=== PATIENT | female | born 1945 | race Caucasian/White ===

== ENCOUNTER 2018-04-15 08:19 | Day surgery (SDC) | payer MEDICARE ==
[~2018-04-15 08:19] MED LIST: ALBU8HFA2 INH; ALBU90OI61 INH; ASPI325 PO; BUTASPCAFT PO; CEPH500 PO; CYAN1000I IM; CYCL10 PO; ERGO50000 PO; FLUC100 PO; FLUSAL1005 INH; Flovent Diskus50 MCG IH; HYDACE5 PO; HYDR-86; HYDR1TAB94 PO; INDERAL XL120 MG PO; LAMO100 PO; LEVSOD100 PO; LEVSOD50 PO; LISI5; LISI5 PO; LORA1 PO; Lamictal200 MG PO; NAPR500 PO; Norco 5-325 Ta1 EACH PO; PROP10 PO; Percocet 5-3251 EACH PO; Prednisone20 MG PO; QUET100 PO; QUET200 PO; SOMA250 MG PO; TOPI25 PO; TOPI50 PO; VENL150ER PO; VENL75ER PO; Vitamin B Comple1 EA PO; ZIPR80 PO; Zofran Odt4 MG SL
== END 2018-04-15 23:09 | disposition home or self-care (01) ==
LOC: RAD 08:19
PROVIDERS: Radiology Diagnostic Radiology
PROC: BR20YZZ Computerized Tomography (CT Scan) of Cervical Spine using Other Contrast (ICD-10-PCS; principal; 2018-04-15 10:30)
DX: M50.11 Cervical disc disorder with radiculopathy, high cervical region (principal); Z87.828 Personal history of other (healed) physical injury and trauma
CPT/HCPCS: 62302; 72126; Q9966

== ENCOUNTER 2018-05-23 10:34 | Day surgery (SDC) | payer MEDICARE ==
[2018-05-23] MEDS ORDERED: CYAN1000I IM (14:32)
== END 2018-05-23 14:38 | disposition home or self-care (01) ==
LOC: ATC 10:34
DX: E53.8 Deficiency of other specified B group vitamins (principal); M50.11 Cervical disc disorder with radiculopathy, high cervical region; E03.9 Hypothyroidism, unspecified; I12.9 Hypertensive chronic kidney disease with stage 1 through stage 4 chronic kidney disease, or unspecified chronic kidney disease; N18.9 Chronic kidney disease, unspecified; Z79.899 Other long term (current) drug therapy; M81.0 Age-related osteoporosis without current pathological fracture; Z95.0 Presence of cardiac pacemaker; J45.909 Unspecified asthma, uncomplicated; G20 Parkinson's disease; F31.9 Bipolar disorder, unspecified; F41.9 Anxiety disorder, unspecified; Z87.891 Personal history of nicotine dependence
CPT/HCPCS: J3420

== ENCOUNTER 2018-06-21 00:36 | Day surgery (SDC) | payer MEDICARE | END 2018-06-21 22:33 | disposition home or self-care (01) | LOC: ATC 00:36 | DX: E53.8 Deficiency of other specified B group vitamins (principal); M54.12 Radiculopathy, cervical region; E03.9 Hypothyroidism, unspecified; Z87.891 Personal history of nicotine dependence | CPT/HCPCS: J3420 ==

== ENCOUNTER 2019-01-16 09:56 | Day surgery (SDC) | payer MEDICARE ==
[~2019-01-16] VITALS: Ht 142.2 cm; Wt 53.0 kg
--- NOTE | 2019-01-16 13:05 | NUR ---
DR. GOODMAN CALLED. PT STATED PAIN LEVEL OF 5/10 IN UPPER LEFT CHEST SITE. DR. GOODMAN CALLED TO VERIFY NPO STATUS AND MEDICATIONS FOR PAIN.
--- NOTE | 2019-01-16 13:20 | NUR ---
FENTYNAL 25MCG IV TORODOL 15MG IV GIVEN @ 1320
--- NOTE | 2019-01-16 18:25 | NUR ---
SUMMARY PT HAS DONE WELL SINCE ADMISSION TO THE FLOOR. VSS, MINIMAL PAIN. PT IS INDEPENDENT IN ROOM, ON ROOM AIR. IN TO ASSESS PT PER CONSULT ORDERS FROM . TEGADERM DRSG WAS REMOVED BY . NEW TEGADERM PLACED. JESENIA REMAIN INTACT. BRUISING NOTED. WCTM AND REPORT TO NOC RN. CALL LIGHT IN REACH.
--- NOTE | 2019-01-17 06:36 | NUR ---
LYING IN SEMI FOWLERS WITH EYES CLOSED. HAD A GOOD NIGHT, DENIES CURRENT PAIN. LEFT SHOULDER INCISION SITE NOTED WITH SMALL AMOUNT OF OOZING BLOOD. INCISION LINE CLOSED WITH SURGICAL GLUE AND JESENIA, WELL APPROXIMATED EDGES NOTED. LEFT ARM IMMOBILIZER IN PLACE. DENIES PAIN OR DISCOMFORT AT THIS TIME. SAFETY MEASURES IN PLACE. WILL CONTINUE TO MONITOR.
[2019-01-17] MEDS ORDERED: CEPH500 PO (08:25)
--- NOTE | 2019-01-17 09:43 | NUR ---
Spiritual care visit conducted. I responded to patient request for a industrial hygienist. I entered room and found patient ready to be discharged. Patient openly shared about her medical history, her sanjay traditions and her family. I provided pastoral career technical counselor, companionship and prayer. Patient responded well and showed signs of an elevated mood.
--- NOTE | 2019-01-17 10:04 | NUR ---
DISCHARGE D/C TO HOME WITH A FAMILY MEMBER VIA PRIVATE VEHICLE. PT AMBULATED TO VEHICLE PER REQUEST. D/C INSTRUCTIONS AND RX WERE GIVEN. VSS. PAIN TOLERABLE AND CONTROLLED WITH PO ADVIL. TEGADERM DRSG REMAINS C/D/I. ARM SLING IN PLACE. PT DENIES N/T TO LEFT ARM. PT ENC TO F/U KATHIE FOR ANY PROBLEMS OR CONCERNS.
== END 2019-01-17 10:03 | disposition home or self-care (01) ==
LOC: MHTC 09:56 → SURS 09:56 → MHTC 09:57 → SURS 15:12 → MHTC 01-17 10:03
DX: Z95.0 Presence of cardiac pacemaker (principal); Z88.2 Allergy status to sulfonamides
CPT/HCPCS: 99152; 99153; J0690; J1644; J1885; J2250; J3010; J3420; J7030; J7040

== ENCOUNTER 2019-02-01 04:13 | Day surgery (SDC) | payer MEDICARE ==
[~2019-02-01] VITALS: Ht 139.7 cm; Wt 52.0 kg
[~2019-02-01 04:13] MED LIST changes: +ALBU3IS INH; +CALC.25 PO; +Flonase 0.05% N16 GM; +PROLIA60 MG/1 ML SC; +PROP80ER PO; +TOPI100 PO; -TOPI50 PO
--- NOTE | 2019-02-01 09:18 | NUR ---
TYLENOL TYLENOL 650MG GIVEN PO NOW.
--- NOTE | 2019-02-01 13:36 | NUR ---
DISCHARGE PT REMAINED A&OX3. PT STATED PAIN IN HER SHOULDER AREA DURING RECOVERY-TYLENOL WAS GIVEN PER ORDERS AND REPOSITIONING TO HELP WITH COMFORT. PT STATED PAIN WAS 3/10 AND TOLERABLE UPON DISCHARGE. UPPER CHEST SITE REMAINED CDI-NO HEMATOMA NOTED. ICE AND 2# SAND BAG REMAINED IN PLACE UNTIL DISCHARGE. 2GM ANCEF GIVEN BEFORE DISCHARGE. IV DC'D WITH CANULAT IN TACT. PT AMBULATED TO RESTROOM (VOIDED) AND DRESSED SELF INDEPENDANTLY. DISCHARGE PAPERWORK GONE OVER WITH PT. PT VERBALLY STATED THE UNDERSTANDING OF THE DISCHARGE EDUCATION GIVEN AND DENIED ANY QUESTIONS AT THIS TIME. PT WHEELD OUT BY THIS NURSE.
== END 2019-02-01 22:35 | disposition home or self-care (01) ==
LOC: MHTC 04:13
DX: Z45.010 Encounter for checking and testing of cardiac pacemaker pulse generator [battery] (principal); Z88.2 Allergy status to sulfonamides
CPT/HCPCS: 33228; 99152; 99153; C1785; J0690; J1644; J2250; J3010; J7030; J7040

== ENCOUNTER 2019-09-21 08:12 | Day surgery (SDC) | payer MEDICARE ==
--- NOTE | 2019-09-21 10:19 | NUR ---
Patient up to Ambulate independently. Gait steady. Discharge instructions reviewed with patient. Patient verbalizes understanding. Copy given to patient to take home. Patient States Post-Procedure ride home has been arranged. Discharged via wheelchair to private car for ride home.
--- NOTE | 2019-09-21 10:57 | NUR ---
ASSUMED CARE AND RECEIVED REPORT FROM DAMEON HADDAD. PT SLEEPING, WAKES AND IS ALERT AND ORIENTED WITHOUT ANY C/O OR CONCERNS EASILY, LUMBAR PUCTURE SITE TO MID LOWER BACK BANDAID IS CDI, NO SWELLING OR REDNESS NOTED.
--- NOTE | 2019-09-21 11:47 | NUR ---
Patient up to Ambulate independently. PT HAS BEEN FALLING RECENTLY, ENCOURAGED HER TO LET US TAKE HER OUT BY WHEELCHAIR WHEN HER RIDE SHOWS UP. PT AGREES TO GO OUT IN A W/C. ALL BELONINGS RETURNED TO PATIENT. Discharge instructions reviewed with patient. Patient verbalizes understanding. Copy given to patient to take home. Patient States Post-Procedure ride home has been arranged. Discharged via wheelchair to private car for ride home.
== END 2019-09-21 23:05 | disposition home or self-care (01) ==
LOC: RAD 08:12 → CT 10:00 → RAD 23:05
DX: M48.061 Spinal stenosis, lumbar region without neurogenic claudication (principal); M47.26 Other spondylosis with radiculopathy, lumbar region; M51.16 Intervertebral disc disorders with radiculopathy, lumbar region; J45.909 Unspecified asthma, uncomplicated; G43.909 Migraine, unspecified, not intractable, without status migrainosus; I49.5 Sick sinus syndrome; G20 Parkinson's disease; E03.9 Hypothyroidism, unspecified; I12.9 Hypertensive chronic kidney disease with stage 1 through stage 4 chronic kidney disease, or unspecified chronic kidney disease; N18.9 Chronic kidney disease, unspecified; F31.9 Bipolar disorder, unspecified; Z87.891 Personal history of nicotine dependence; Z88.2 Allergy status to sulfonamides; Z79.51 Long term (current) use of inhaled steroids; Z79.899 Other long term (current) drug therapy; Z95.0 Presence of cardiac pacemaker
CPT/HCPCS: 62304; 72132; Q9966

== ENCOUNTER 2020-02-08 15:43 | Inpatient (IN) | payer MEDICARE ==
[~2020-02-08] VITALS: Ht 142.2 cm; Wt 54.4 kg
[~2020-02-08 15:43] MED LIST changes: -CALC.25 PO; +CALCITRIOL0.5 MC1 PO; +Inderal40 MG PO; -PROP80ER PO
[2020-02-08 16:16] LABS: Source, Urine Catheter
[2020-02-08 16:31] LABS: BASOPHILS ABSOLUTE AUTO 0.05 K/mm3 (0.00-0.23); BASOPHILS PERCENT AUTO 1 % (0-2); EOSINOPHILS PERCENT AUTO 2 % (0-6); Hematocrit 36.9 % (33.0-51.0); Hemoglobin 11.4 g/dL (11.5-16.0); IMMATURE GRAN ABSOLUTE AUTO 0.04 K/mm3 (0.00-0.10); IMMATURE GRAN PERCENT AUTO 1 % (0-1); LYMPHOCYTES ABSOLUTE AUTO 0.76 K/mm3 (0.84-5.20); LYMPHOCYTES PERCENT AUTO 14 % (21-46); MONOCYTES ABSOLUTE AUTO 0.59 K/mm3 (0.16-1.47); MONOCYTES PERCENT AUTO 11 % (4-13); Mean Corpuscular HGB 33.7 pg (26.0-34.0); Mean Corpuscular HGB Conc 30.9 g/dL (31.5-36.5); Mean Corpuscular Volume 109 fL (80-100); NEUTROPHILS ABSOLUTE AUTO 4.05 K/mm3 (1.96-9.15); NEUTROPHILS PERCENT AUTO 72 % (41-73); Platelet Count 82 K/mm3 (150-400); RDW Coefficient Variation 13.1 % (11.7-14.2); RDW Standard Deviation 52.5 fL (35.1-46.3); Red Blood Cell Count 3.38 M/mm3 (3.80-5.20); White Blood Cell Count 5.59 K/mm3 (4.00-11.30)
[2020-02-08 16:40] LABS: Bilirubin, Urine Neg (Neg); Blood, Urine 3+ (Neg); Glucose Qualitative, Urine Neg (Neg); Ketones, Urine Neg (Neg); Leukocyte Esterase, Urine 3+ (Neg); Nitrite, Urine Neg (Neg); Protein, Urine 3+ (Neg); Specific Gravity, Urine 1.015 (1.003-1.022); Urobilinogen, Urine NORM (Normal)
[2020-02-08 16:41] LABS: Mean Platelet Volume 13.2 fL (9.1-12.4)
[2020-02-08 16:50] LABS: Appearance, Urine Cloudy (Clear); Color, Urine Yellow (P-Yellow)
[2020-02-08 16:56] LABS: Squamous Epithelial Cells Rare /hpf (Few); White Blood Cells, Urine TNTC /hpf (0-5)
[2020-02-08 16:57] LABS: Amorphous Light (0-Heavy); Bacteria Mod /hpf
[2020-02-08 16:58] LABS: Transitional Epithelial Cells Few /hpf (0-Rare)
[2020-02-08] MEDS ORDERED: QUETIAPINE FUM100 MG PO (16:59)
[2020-02-08 17:00] LABS: Albumin, Blood 3.1 g/dL (3.4-5.0); Albumin/Globulin Ratio 0.9 (0.8-1.8); Bilirubin, Total 0.5 mg/dL (0.1-1.0); Bun/Creatinine Ratio 10.6 (12.0-20.0); Calcium, Blood 6.3 mg/dL (8.5-10.1); Creatinine, Blood 9.11 mg/dL (0.40-1.00); Globulin, Blood 3.4 g/dL (2.2-4.0); Potassium, Blood 6.4 mmol/L (3.5-5.5); Total Protein, Blood 6.5 g/dL (6.4-8.2)
[2020-02-08] MEDS ORDERED: LISINOPRIL2.5 MG PO (17:01)
[2020-02-08] MEDS ORDERED: TOPI100 PO (17:01)
[2020-02-08] MEDS ORDERED: B-121000 MC3 PO (17:02)
[2020-02-08 18:42] LABS: Influenza A Negative (NEGATIVE); Influenza B Negative (NEGATIVE)
[2020-02-08 20:04] LABS: Bun/Creatinine Ratio 10.5 (12.0-20.0); Calcium, Blood 6.1 mg/dL (8.5-10.1); Creatinine, Blood 9.1 mg/dL (0.40-1.00); Potassium, Blood 6.2 mmol/L (3.5-5.5)
[2020-02-09 04:09] LABS: Hematocrit 34.6 % (33.0-51.0); Mean Corpuscular HGB 34.5 pg (26.0-34.0); Mean Corpuscular HGB Conc 31.8 g/dL (31.5-36.5); Mean Corpuscular Volume 109 fL (80-100); Platelet Count 94 K/mm3 (150-400); RDW Standard Deviation 52.4 fL (35.1-46.3); Red Blood Cell Count 3.19 M/mm3 (3.80-5.20); White Blood Cell Count 5.16 K/mm3 (4.00-11.30)
[2020-02-09 04:17] LABS: Mean Platelet Volume 13.4 fL (9.1-12.4)
[2020-02-09 04:45] LABS: Bun/Creatinine Ratio 10.3 (12.0-20.0); Calcium, Blood 5.5 mg/dL (8.5-10.1); Creatinine, Blood 8.9 mg/dL (0.40-1.00); Potassium, Blood 5.5 mmol/L (3.5-5.5)
--- NOTE | 2020-02-09 06:06 | NUR ---
SHIFT SUMMARY PT RESTING IN ROOM COMFORTABLY AT THIS TIME. NO ACUTE CHANGES IN STATUS SINCE ARRIVAL. PT VERY PLEASENT AFFECT. RESP EVEN UNLABORED ON RA W/ SATS >92% PT DENIES SOB. DENIES CP. PT IS CONFUSED AT TIMES, ORIENTED TO PERSON AND SURROUNDINGS BUT CANNOT STATE DATE AND SOMETIMES DOESNT KNOW THE YEAR. PT HAD HIGH POTASSIUM LEVEL UPON ARRIVAL, MEDICATED PER EMAR, POTASSIUM LEVEL NOW STABLE. LOW CALCIUM LEVEL THIS AM. PROVIDER CALLED AND WILL MEDICATE PER EMAR. PT DENIES OTHER NEEDS. PT HAS NOT URINATED SINCE ARRIVAL, ED RN REPORTED X3 VOIDS IN ED. NS INFUSING IN PIV AT 125/HR. BED ALARM IS ON FOR SAFETY. CALL LIGHT IN REACH.
--- NOTE | 2020-02-09 09:03 | NUR ---
pt laying in bed awake a/ox3, pleasant and cooperative with care, follows commands well, denies pain, but does report sob, she is currenty on 2 liters via n/c with sats at 94%, lungs are slightly course on right side, reports an ocational cough of yellow sputum, hrr, tele in place running sr per monitor, see strip, no edema noted, ppp+1, cap refill < 3sec, vs stable, afebrile, iv site to left hand, site is clear and patent, btx4, abd flat soft nontender, voids via bsc, bladder scan was done one hr post void, she had 20mls, skin has small bruise to coccyx, otherwise c/w/d, jennie, carolyne, call light in reach. Dr. mackey was consulted, new orders recieved.
--- NOTE | 2020-02-09 11:24 | NUR ---
pt laying in bed, vs stable, she is laboring to breath more. she continues on 2 liters, and sats are 97%. she did report a bit of dizziness when bicarb was being pushed. new iv placed to rfa x1 attempt, flushes well. call light in reach.
--- NOTE | 2020-02-09 12:54 | NUR ---
Patient is lying in bed and alert. Patient tells me that she remembers me as soon as I enter patient's room. Patient is kind and pleasant. Patient states that she is a bit fearful. I listen empathically, explore patient's congregation beliefs and provide anxiety containment, pastoral equal opportunity counselor and prayer. Patient responds well and displays evidence of reduced stress and fear. Patient verbalizes appreciation for the visit. I will continue to remain available to patient and family.
--- NOTE | 2020-02-09 19:21 | NUR ---
pt states she feels better this evening than she did this am, she denies any complaints or needs, call light in reach.
[2020-02-10 00:44] LABS: Base Excess Venous -13.4 mmol/L; Bicarbonate Venous 13.9 mmol/L (24.0-30.0); PO2 Venous 44.3 mmHg (38-42); pH Blood Venous 7.12 (7.34-7.37)
[2020-02-10 00:49] LABS: BASOPHILS ABSOLUTE AUTO 0.04 K/mm3 (0.00-0.23); BASOPHILS PERCENT AUTO 1 % (0-2); EOSINOPHILS ABSOLUTE AUTO 0.01 K/mm3 (0.00-0.68); EOSINOPHILS PERCENT AUTO 0 % (0-6); Hematocrit 33.9 % (33.0-51.0); Hemoglobin 10.8 g/dL (11.5-16.0); IMMATURE GRAN ABSOLUTE AUTO 0.04 K/mm3 (0.00-0.10); IMMATURE GRAN PERCENT AUTO 1 % (0-1); LYMPHOCYTES ABSOLUTE AUTO 0.73 K/mm3 (0.84-5.20); LYMPHOCYTES PERCENT AUTO 8 % (21-46); MONOCYTES PERCENT AUTO 8 % (4-13); Mean Corpuscular HGB Conc 31.9 g/dL (31.5-36.5); Mean Corpuscular Volume 107 fL (80-100); Mean Platelet Volume 12.6 fL (9.1-12.4); NEUTROPHILS ABSOLUTE AUTO 7.16 K/mm3 (1.96-9.15); NEUTROPHILS PERCENT AUTO 82 % (41-73); Platelet Count 113 K/mm3 (150-400); RDW Coefficient Variation 13.2 % (11.7-14.2); RDW Standard Deviation 52.1 fL (35.1-46.3); Red Blood Cell Count 3.18 M/mm3 (3.80-5.20); White Blood Cell Count 8.68 K/mm3 (4.00-11.30)
--- NOTE | 2020-02-10 01:07 | NUR ---
CARE ASSUMPTION / UPDATE PT CONDITION UPON CARE ASSUMPTION PT ALERT, ORIENTED TO OWN NAME, UNABLE TO STATE W/ PT STATING "ZARA PIPO, ZARA PIPO, ZARA PIPO. COME ON, I CAN DO THIS.." BUT PT UNABLE TO STATE . PT LUNG SOUNDS COARSE, DIM IN BASES ON CARE ASSUMPTION THEN W/ DEVELOPED CRACKLES W/ SPO2 > 92% ON 2L NC. PT W/ OCCASSIONAL HARSH, NONPRODUCTIVE COUGH. PT RESPIRATIONS LABORED W/ RR 20's-30's W/ PT C/O DIFFICULTY BREATHING, RT CALLED TO PT RM FOR BREATHING TX. PT RESPIRATIONS EVEN & UNLABORED POST BREATHING TX W/ PT REPORT OF RELIEF. PT BREATHING EVEN & UNLABORED & VSS UPON ROUNDING/ASSESSING @ 2300. CALL FROM COMMUNICATIONS AGENT @ APPROX 2320 REPORTING PT HR 140's. UPON ENTERING PT RM PT RED FACED, SLID DOWN IN BED, RR 30's, SPO2 70's ON 2L NC. LUNG SOUNDS W/ CRACKLES. PT SLID UP IN BED, NON-REBREATHER APPLIED @ 15L W/ RETURN OF SPO2 > 92%. RT & JORGE ANDRADE CALLED TO PT RM. NEW ORDERS FROM JORGE ANDRADE FOR PT BE PLACED ON BIPAP. RT PLACED PT ON BIPAP: 28/04, FIO2 50%. ORDER FOR ONE TIME IV ATIVAN & IV BUMEX GIVEN. RESP PANEL & COVID-19 R/O SPECIMEN SAMPLES OBTAINED PER ORDERS & PT PLACED IN ISOLATION. PT RESPIRATIONS EVEN & UNLABORED NOW ON BIPAP W/ SPO2 > 92%. WILL CONTINUE TO MONITOR AND PROVIDE CARE.
[2020-02-10 01:12] LABS: CPK Creatine Kinase 339 U/L (26-193); Magnesium, Blood 2.7 mg/dL (1.6-2.4); Uric Acid, Blood 5.5 mg/dL (2.6-6.0)
[2020-02-10 01:16] LABS: Albumin, Blood 2.9 g/dL (3.4-5.0); Anion Gap 17 mmol/L (6-16); Blood Urea Nitrogen 87 mg/dL (8-24); Bun/Creatinine Ratio 9.8 (12.0-20.0); CO2, Blood 17 mmol/L (21-32); Calcium, Blood 5.8 mg/dL (8.5-10.1); Chloride, Blood 111 mmol/L (98-108); Creatinine, Blood 8.92 mg/dL (0.40-1.00); Glomerular Filtration Rate 5 (60-); Glucose, Blood 154 mg/dL (70-99); Phosphorus, Blood 11.7 mg/dL (2.5-4.9); Potassium, Blood 4.4 mmol/L (3.5-5.5); Sodium, Blood 145 mmol/L (136-145); Vancomycin, Random 18.3 ug/mL
[2020-02-10 01:49] LABS: Adenovirus Not Detected (NOT DETECT); Bordetella pertussis Not Detected (NOT DETECT); Chlamydophila pneumoniae Not Detected (NOT DETECT); Coronavirus 229E Not Detected (NOT DETECT); Coronavirus HKU1 Not Detected (NOT DETECT); Coronavirus NL63 Not Detected (NOT DETECT); Coronavirus OC43 Not Detected (NOT DETECT); Human Metapneumovirus Not Detected (NOT DETECT); Human Rhinovirus/Enterovirus Not Detected (NOT DETECT); Influenza A/2009-H1 Not Detected (NOT DETECT); Influenza A/H1 Not Detected (NOT DETECT); Influenza A/H3 Not Detected (NOT DETECT); Influenza B Not Detected (NOT DETECT); Mycoplasma pneumoniae Not Detected (NOT DETECT); Parainfluenza Virus 1 Not Detected (NOT DETECT); Parainfluenza Virus 2 Not Detected (NOT DETECT); Parainfluenza Virus 3 Not Detected (NOT DETECT); Parainfluenza Virus 4 Not Detected (NOT DETECT); Respiratory Syncytial Virus Not Detected (NOT DETECT)
--- NOTE | 2020-02-10 03:32 | NUR ---
NO URINE OUTPUT / UPDATE PT W/ NO URINE OUTPUT 2 HRS POST IV BUMEX. BLADDER SCAN DONE, SHOWING APPROX 410 MLS. CALL TO MD SINGH W/ ORDERS TO INSERT RAYMUNDO & REPEAT 2 MG IV BUMEX. MD SINGH ALSO INFORMED OF CRITICAL CALCIUM LEVEL W/ NEW ORDERS FOR IV CALCIUM GLUCONATE, SEE EMAR. PT POORLY TOLERATING LAYING FLAT FOR RAYMUNDO INSERTION W/ SPO2 DESAT TO 84% ON BIPAP: 28/04, FIO2 50%, FIO2 TEMPORARILY INCREASED UP TO 100% FOR SPO2 > 92% DURING RAYMUNDO INSERTION. PT SETTINGS RETURNED TO 14/6, FIO2 50% ONCE RAYMUNDO INSERTED AND PT SITTING UP IN BED AGAIN. RAYMUNDO CATH PATENT AND DRAINING YELLOW URINE. URINE SAMPLE SENT.
[2020-02-10 03:45] LABS: Source, Urine Catheter
[2020-02-10 03:47] LABS: Bilirubin, Urine Neg (Neg); Blood, Urine 2+ (Neg); Glucose Qualitative, Urine Neg (Neg); Ketones, Urine 1+ (Neg); Leukocyte Esterase, Urine 2+ (Neg); Nitrite, Urine Neg (Neg); Protein, Urine 1+ (Neg); Urobilinogen, Urine NORM (Normal)
[2020-02-10 03:57] LABS: Amorphous Light (0-Heavy); Appearance, Urine Hazy (Clear); Bacteria Few /hpf; Color, Urine Pale Yellow (P-Yellow); Mucus Light (0-Heavy); Red Blood Cells, Urine 0-2 /hpf (0-2); Squamous Epithelial Cells Few /hpf (Few); White Blood Cells, Urine 50-100 /hpf (0-5)
--- NOTE | 2020-02-10 07:21 | NUR ---
UPDATE / SHIFT SUMMARY PT W/ 450 MLS URINE OUT OF RAYMUNDO CATH THIS SHIFT. MD SINGH NOTIFIED OF URINE OUTPUT W/ NEW ORDERS FROM MD SINGH FOR MATERIALS SPECIALIST CONSULT FOR TEMPORARY MAHURKAR PLACEMENT & DIALYSIS TODAY. PT NO LONGER ON BIPAP, W/ SPO2 > 92% ON 4L NC. PT REPORTS FEELING MUCH BETTER THIS MORNING AND REPORTS FEELING HUNGRY, ASKING FOR APPLESAUCE. PT REMINDED OF STANDING NPO ORDER, AND WILL HAVE TO AWAIT FURTHER ST EVALUATION/CLEARING. PT PLEASANT AND UNDERSTANDING. SEE PREVIOUS NURSE NOTES FOR FURTHER EVENTS THIS SHIFT. REPORT GIVEN TO DAY SHIFT RN.
--- NOTE | 2020-02-10 07:38 | NUR ---
pt laying in bed with eyes closed, reports she is feeling a bit better than she did through the night, has a harsh productive cough of yellow sputum, lungs are a bit course, but was able to clear some with a cough, is currently on 4 liters 02 via n/c, resp even mildly labored at rest, hrr, tele in place running sr per monitor, see strip, no edema noted, ppp+faint, iv to rfa and left hand, both saline locked at this time, patent, btx4, abd flat soft nontender, voids without diff, skin has bruising from a fall at home, maew, has a tremor in both arms, voice is very raspy, did not pass swallow eval yesterday, so will be reeval today, carolyne, call light in reach.
--- NOTE | 2020-02-10 11:32 | NUR ---
pt doing better, is sitting on the side of the bed working on [employer], speech cleared her for nectar thick liquids, and jessica po meds crushed in applesauce, she is down to 3 liters, no further changes, call light in reach.
[2020-02-10 11:42] LABS: Protein, Urine Quantitative 40.6 mg/dL (0.0-11.9)
--- NOTE | 2020-02-10 18:13 | NUR ---
PT HAD A PERMACATH PLACED, HAD DIALYSIS, 1.5 LITER WAS REMOVED. SHE HAS CONTINUED TO HAVE SOME CONFUSION, DID NOT WANT TO EAT DINNER, NO FURTHER CHANGES, CALL LIGHT IN REACH.
[2020-02-11 04:51] LABS: Vancomycin, Random 12.6 ug/mL
--- NOTE | 2020-02-11 05:46 | NUR ---
SHIFT SUMMARY PT PLEASANT AND COOPERATIVE, A&O TO SELF AND PLACE, FOLLOWING INSTRUCTIONS. LUNG SOUNDS COARSE. SPO2 > 92% ON 3L NC, TOLERATING WELL, UNTIL PT DESAT TO MID 80's @ APPROX 0230 WHILE LAYING IN BED THIS SHIFT, REQUIRING TITRATION TO 5L NC W/ SPO2 ONLY 85-88%. PT THEN PLACED ON BIPAP: 28/04, FIO2 45% W/ SPO2 > 92%. NO FURTHER EVENTS THIS SHIFT. MONITOR SHOWS SR-ST W/ OCCASSIONAL PACING. HR 80's-110. RAYMUNDO CATH PATENT AND DRAINING YELLOW URINE. KUNAL IN PLACE. WILL CONTINUE TO MONITOR AND PROVIDE CARE UNTIL REPORT OFF TO DAY SHIFT RN.
[2020-02-11 06:59] LABS: Hematocrit 33.1 % (33.0-51.0); Hemoglobin 10.7 g/dL (11.5-16.0)
[2020-02-11 07:06] LABS: Albumin, Blood 2.8 g/dL (3.4-5.0); Anion Gap 19 mmol/L (6-16); Blood Urea Nitrogen 57 mg/dL (8-24); Bun/Creatinine Ratio 8.6 (12.0-20.0); CO2, Blood 18 mmol/L (21-32); Calcium, Blood 7.5 mg/dL (8.5-10.1); Chloride, Blood 107 mmol/L (98-108); Creatinine, Blood 6.62 mg/dL (0.40-1.00); Glomerular Filtration Rate 7 (60-); Glucose, Blood 116 mg/dL (70-99); Magnesium, Blood 2.5 mg/dL (1.6-2.4); Potassium, Blood 2.9 mmol/L (3.5-5.5); Sodium, Blood 144 mmol/L (136-145)
[2020-02-11 07:31] LABS: Phosphorus, Blood 8.9 mg/dL (2.5-4.9)
--- NOTE | 2020-02-11 07:50 | NUR ---
ASSUMED CARE OF PATIENT. RT IN TO SEE PATIENT, CHANGING OVER FROM BIPAP. CONTIOUS SAT MONITOR IN PLACE.
--- NOTE | 2020-02-11 14:35 | NUR ---
SPOKE WITH SON SHEILA ON PHONE.CO- SIGNED VERBAL RELEASE OF INFORMATION WITH CHARGE NURSE DUE TO PATEINT BEING IN DROPLET ISOLATION R/O COVID PATIENT
--- NOTE | 2020-02-11 16:00 | NUR ---
PATEINT ATTEMPTED TO GET OUT FO BED FOR BM. INCONTENT OF SNMALL AMOUNT OF STOOL. PLACED BACK ONTO BIPAP AFTER PERICARE DUE TO INCREASED RESPIRATORY EFFORT AND DECREASED SPO2. BED ALARM REMAINS ON FOR SAFETY.
--- NOTE | 2020-02-11 17:18 | NUR ---
SHIFT SUMMARY. PATIENT REPORTS FEELING GENRAL IMPROVEMENT T/O DAY. REMAINED ON NC AT 5L/MIN FOR MOST OF DAY. APPROX 1 HOUR OF BIPAP USE THIS AFTERNOON AND BACK ONTO NC AT THIS TIME. CONTINOUS SAT MONITOR ON. BED ALARM ON. PATIENT CONTINUALLY RE-OREINTED TO CALL LIGHT USE AND NEED TO CALL FOR ASSISTANCE BUT CONTINUES TO BE UNRELIABLE WITH CALL LIGHT USE. PRIMARILY NON PRODUCTIVE COUGH. TOLERATED DIALYSIS THIS AM WELL. ANGLE SHEAR OPERATOR REPLACED LOW POTASSIUM WITH 20 MEQ IV [address] THERAPY[address] SINGH NOTIFIED THIS AM OF CRITICAL HIGH PHOS LEVEL, NO REPEAT LABS ORDERED FOR THIS AFTERNOON. WILL REPORT OFF TO ONCOMING SHIFT AT APPROPRIATE TIME.
--- NOTE | 2020-02-11 18:02 | NUR ---
PATIENT PLACED BACK ONTO BIPAP AFTER DINNER. INCREASED FIO2 TO 50% SPO2 BRODERLINE, DREASING TO 85% AT TIMES WITH FIO2 AT 45. SPO2 91 % AST THIS TIME.
--- NOTE | 2020-02-11 21:25 | NUR ---
APPROX 1999 PATIENT O2 SATURATION DROPPING TO A RANGE BETWEEN 85 AND 88% SATURATION ON 15L HIGH FLOW NASAL CANNULA. PATIENT WILL NOT KEEP BIPAP ON D/T CONFUSION. REPORTS ANALYSIS MANAGER KJ NOTIFIED AND ORDERS RECIEVED TO PLACE PATIENT IN ICU FOR HIGHER LEVEL OF CARE AND MEDICATIONS. I WAS TRANSFERED TO ICU WITH PATIENT TO CONTINUE HER NURSE HERE. PATIENT PRECEDEX STARTED, BIPAP PLACED, VSS AND PATIENT MONITORED CAREFRULLY.
[2020-02-11 23:15] LABS: Albumin, Blood 2.8 g/dL (3.4-5.0); Anion Gap 14 mmol/L (6-16); Blood Urea Nitrogen 44 mg/dL (8-24); Bun/Creatinine Ratio 8.6 (12.0-20.0); CO2, Blood 25 mmol/L (21-32); Calcium, Blood 7.6 mg/dL (8.5-10.1); Chloride, Blood 104 mmol/L (98-108); Creatinine, Blood 5.13 mg/dL (0.40-1.00); Glomerular Filtration Rate 9 (60-); Glucose, Blood 131 mg/dL (70-99); Phosphorus, Blood 7.9 mg/dL (2.5-4.9); Sodium, Blood 143 mmol/L (136-145)
[2020-02-11 23:47] LABS: PCO2 Arterial 38.8 mmHg (35-45); PO2 Arterial 199 mmHg (80-100); pH Blood Arterial 7.38 (7.35-7.45)
[2020-02-12 05:01] LABS: PCO2 Arterial 35.4 mmHg (35-45); PO2 Arterial 69.8 mmHg (80-100); pH Blood Arterial 7.42 (7.35-7.45)
[2020-02-12 05:08] LABS: HBSAG SCREEN Negative (Negative); HEP A AB, IGM Negative (Negative); HEP B CORE AB, IGM Negative (Negative); HEP C VIRUS AB <0.1 (0.0-0.9)
--- NOTE | 2020-02-12 05:49 | NUR ---
SHIFT SUMMARY: PATIENT PRECEDEX STOPPED AT APPROX 0200 D/T LOW BP, PATIENT REBOUNDED QUICKLY AND SLEPT WELL. AT APPROX 0500 PATIENT BEGAN PULLING BIPAP OFF AGAIN AND QUICKLY DESATURATED, PRECEDEX STARTED AGAIN AND PATIENT REMAINS STABLE WITH VS. PATIENT TURNS SELF IN BED FREQUENTLY, RAYMUNDO PATENT AND DRAINING TO GRAVITY.
[2020-02-12 06:54] LABS: BASOPHILS ABSOLUTE AUTO 0.02 K/mm3 (0.00-0.23); BASOPHILS PERCENT AUTO 0 % (0-2); EOSINOPHILS ABSOLUTE AUTO 0.01 K/mm3 (0.00-0.68); EOSINOPHILS PERCENT AUTO 0 % (0-6); Hematocrit 33.2 % (33.0-51.0); Hemoglobin 10.7 g/dL (11.5-16.0); IMMATURE GRAN ABSOLUTE AUTO 0.02 K/mm3 (0.00-0.10); IMMATURE GRAN PERCENT AUTO 0 % (0-1); LYMPHOCYTES ABSOLUTE AUTO 0.85 K/mm3 (0.84-5.20); LYMPHOCYTES PERCENT AUTO 10 % (21-46); MONOCYTES ABSOLUTE AUTO 0.78 K/mm3 (0.16-1.47); MONOCYTES PERCENT AUTO 9 % (4-13); Mean Corpuscular HGB 33.1 pg (26.0-34.0); Mean Corpuscular HGB Conc 32.2 g/dL (31.5-36.5); NEUTROPHILS ABSOLUTE AUTO 7.19 K/mm3 (1.96-9.15); NEUTROPHILS PERCENT AUTO 81 % (41-73); Platelet Count 105 K/mm3 (150-400); Red Blood Cell Count 3.23 M/mm3 (3.80-5.20); White Blood Cell Count 8.87 K/mm3 (4.00-11.30)
[2020-02-12 06:55] LABS: Mean Corpuscular Volume 103 fL (80-100); Mean Platelet Volume 13.2 fL (9.1-12.4)
[2020-02-12 07:08] LABS: Albumin, Blood 2.7 g/dL (3.4-5.0); Anion Gap 15 mmol/L (6-16); Blood Urea Nitrogen 52 mg/dL (8-24); Bun/Creatinine Ratio 9.7 (12.0-20.0); CO2, Blood 24 mmol/L (21-32); Calcium, Blood 7.4 mg/dL (8.5-10.1); Chloride, Blood 105 mmol/L (98-108); Creatinine, Blood 5.35 mg/dL (0.40-1.00); Glomerular Filtration Rate 8 (60-); Glucose, Blood 99 mg/dL (70-99); Magnesium, Blood 2.3 mg/dL (1.6-2.4); Phosphorus, Blood 6.4 mg/dL (2.5-4.9); Sodium, Blood 144 mmol/L (136-145)
--- NOTE | 2020-02-12 07:15 | NUR ---
BEGINNING OF SHIFT Assumed care of pt at 0700. Bedside report received from Yoanna HADDAD. Pt on 10 LPM NC. A&O x 2. Pleasant and cooperative with care. Luis catheter in place for strict measurement of output. Dialysis catheter to right neck. Pt on 0.2 mcg/kg/hr precedex. Bed in lowest position. Call light in reach. Pt denies need at this time.
--- NOTE | 2020-02-12 10:00 | NUR ---
DR BRUNNER IN TO SEE PT Plan of care discuseed. No new orders at this time.
--- NOTE | 2020-02-12 14:00 | NUR ---
FOREHEAD SpO2 SENSOR APPLIED Applied to right forehead. Will assess for signs of pressure injury.
[2020-02-12 14:08] LABS: A/G RATIO 1.3 (0.7-1.7); ALBUMIN 3.1 g/dL (2.9-4.4); ALPHA-1-GLOBULIN 0.3 g/dL (0.0-0.4); ALPHA-2-GLOBULIN 0.7 g/dL (0.4-1.0); BETA GLOBULIN 0.7 g/dL (0.7-1.3); GAMMA GLOBULIN 0.7 g/dL (0.4-1.8); GLOBULIN, TOTAL 2.4 g/dL (2.2-3.9); IMMUNOGLOBULIN A, QN, SERUM 189 mg/dL (64-422); IMMUNOGLOBULIN G, QN, SERUM 689 mg/dL (700-1600); IMMUNOGLOBULIN M, QN, SERUM 57 mg/dL (26-217); M-SPIKE Not Observed g/dL (Not Observed); PROTEIN, TOTAL, SERUM 5.5 g/dL (6.0-8.5)
--- NOTE | 2020-02-12 15:00 | NUR ---
DR ESCAMILLA IN TO SEE PT No new orders at this time.
--- NOTE | 2020-02-12 19:03 | NUR ---
SUMMARY Pt wore BiPAP for majority of shift today. When pt off BiPAP, pt wears 15 LPM NC. Pt off precedex at this time. Pt taken off BiPAP at 1845, but was tolerating BiPAP well previously. Pt A&O x 2. Knows correct month and year but does not know exact day. Pt has not been OOB this shift due to high oxygen requirements. Pt repositions in bed independently. Incontinent of liquid stool, pt has been receiving stool softeners, therefore sample not sent. Luis catheter remains in place for strict measurement of output. Will continue to closely monitor until care handoff and bedside report with oncoming RN.
[2020-02-13 04:07] LABS: Hematocrit 36.5 % (33.0-51.0); Hemoglobin 11.9 g/dL (11.5-16.0)
[2020-02-13 04:27] LABS: Albumin, Blood 2.8 g/dL (3.4-5.0); Anion Gap 11 mmol/L (6-16); Blood Urea Nitrogen 46 mg/dL (8-24); Bun/Creatinine Ratio 10.8 (12.0-20.0); CO2, Blood 28 mmol/L (21-32); Calcium, Blood 8.5 mg/dL (8.5-10.1); Chloride, Blood 100 mmol/L (98-108); Creatinine, Blood 4.27 mg/dL (0.40-1.00); Glomerular Filtration Rate 11 (60-); Glucose, Blood 141 mg/dL (70-99); Magnesium, Blood 2.3 mg/dL (1.6-2.4); Phosphorus, Blood 4.5 mg/dL (2.5-4.9); Potassium, Blood 3.1 mmol/L (3.5-5.5); Sodium, Blood 139 mmol/L (136-145)
--- NOTE | 2020-02-13 05:12 | NUR ---
PT TITRATING OFF O2: CURRENTLY 97% ON 2L N/C. PT MORE ORIENTED AND STATED MONTH, YEAR, PLACE, AND NEW LEGAL SUPPORT MANAGER NAME WHEN ENTERED ROOM. VSS. PT CONTINUING WITH LIQUID BROWN STOOL. TOLDAY WILL BE 48 HRS POST STOOL SOFTNER. MAY SEND STOOL SAMPLE. PT PLEASANT AND COOPERATIVE USING CALL LIGHT APPROPRIATELY.
--- NOTE | 2020-02-13 06:19 | NUR ---
DR. SINGH AT BEDSIDE. NEW ORDERS TO INCREASE IV KcL TO 30 mEq.
--- NOTE | 2020-02-13 07:00 | NUR ---
Received report from Helen HADDAD. Patient immediatley calling for water and bedpan. She has liquid brown stool and frequent. Helen cleaned her up and changed dry flows. She is alert and able to communicate her needs and uses call light appropriatelt. She is on 3 L O2 via HF NC and sats 94%. HR in the 60's and systolic 160's. She has 16 Fr pascal draining to gravity and has small amount of yellow urine. She has thickened honey thick liquids at bedside and heard her coughing and instructed her to chin to chest with swallowing. MAEW in bed and weak.
--- NOTE | 2020-02-13 09:16 | NUR ---
PT in room with patient currently. She had two more liquid stools and changed linen once. She tolerated whole meds in apple sauce and has been using the chin down technique and has no signs of aspiration. She remains on 3 L O2 HF NC and sats 93%.
--- NOTE | 2020-02-13 10:59 | NUR ---
Patient just finished swallow eval with ST and stated that she was having some breathing difficulty and SOB. I slowly increased HF NC to 9L O2 without much success. Talked with Dr Macias and OK to place on BIPAP 10/20 and sats currently 100% and resting. She has dialysis cath [facility] and they will be here after lunch to to treatment.
--- NOTE | 2020-02-13 12:00 | NUR ---
Patient has been resting on BIPAP 10/20 and reduced to 50% and sats 100%. She awakens to verbal stimuli then falls back to sleep. She is now NPO per ST and will await swallow follow through when ruled out Covid. VSS See EMR
[2020-02-13 13:09] LABS: ANA DIRECT Negative (Negative); ANTIMYELOPEROXIDASE (MPO) ABS <9.0 U/mL (0.0-9.0); ANTIPROTEINASE 3 (PR-3) ABS <3.5 U/mL (0.0-3.5); ATYPICAL PANCA <1:20 titer (Neg:<1:20); CYTOPLASMIC (C-ANCA) <1:20 titer (Neg:<1:20); PERINUCLEAR (P-ANCA) <1:20 titer (Neg:<1:20)
[2020-02-13 13:09] LABS: M-SPIKE, % Not Observed % (Not Observed); PROTEIN,TOTAL,URINE 27.4 mg/dL (Not Estab.)
--- NOTE | 2020-02-13 16:56 | NUR ---
Patient had dialysis started around 1500 and will finishing in 15 minutes. She has tolerated well , VSS see EMR. She remains on BIPAP 12/6 at 50% at 100% sats. She has been resting throughout and awakens to verbal stimuli. Will start 1500 ABX when done. No other significant changes.
--- NOTE | 2020-02-13 17:48 | NUR ---
Patient continues to rest. Dialysis just left and as long as patient sleeping will leaveon BIPAP 12/6 at 50% at sats 100%. She is NPO and will reamin until able to test by radiology and ST. VSS, See EMR, SR 60's. Pascal only had 200ml dark yellow and very little from rectal tube. Flushed pascal to assure patency. NS TKO infusing.
--- NOTE | 2020-02-13 21:16 | NUR ---
PT AWAKENS AND REQUESTS OFF BIPAP. PT FULLY A+O TO PLACE, DATE, AND SITUATION. PT SATS 99-100% ON RA. PT ABLE TO SWISH AND SPIT EASILY FOR RELIEF OF DRY MOUTH. PT STATED CORRECTLY THE EVENTS OF TODAY AND PLAN FOR REASON OF ASPIRATION. PT CURRENTLY ON PHONE WITH FRIEND AND IS TALKING COMPLETE FULL SENTENCES CLEARLY. WILL CONTINUE TO MONITOR.
--- NOTE | 2020-02-13 22:22 | NUR ---
AT APPRX 2130, PT FINISHED PHONE CALL TO FRIEND. PT TURNED SELF IN BED FOR TONEY CHANGE AND CLARIFICATION OF RECTAL TUBE PATENCY. CORY CARE PROVIDED. PT TURNED ONTO RIGHT SIDE. RECTAL TUBE PATENT AND DRAINING BROWN LIQUID STOOL.
--- NOTE | 2020-02-14 00:07 | NUR ---
RECTAL TUBE REMOVED: STOOL THICKENING AND LEAKING AROUND TUBE. PT REQUESTED IT TO BE OUT. TUBE BALLOON DEFLATED, RECTAL TUBE REMOVED WITHOUT DIFFICULTY. PT APPRECIATIVE. PT INQUIRED ABOUT JEWLERY AND GLASSES THAT SHE WAS WEARING WHEN SHE CAME IN THROUGH ER. JEWLERY FOUND IN CASE WITH PT'S SWEATSHIRT AND WAS SHOWN TO THE PT. PT'S GLASSES NOT FOUND WIHT PT'S BELONGINGS. PCU DEPT NOTIFIED AND ARE LOOKING SINCE PT CAME FROM ROOM PCU 9. IF NOT FOUND WILL INQUIRE WITH PT'S FRIEND KWAME IN AM.
[2020-02-14 03:30] LABS: BASOPHILS ABSOLUTE AUTO 0.01 K/mm3 (0.00-0.23); BASOPHILS PERCENT AUTO 0 % (0-2); EOSINOPHILS ABSOLUTE AUTO 0.09 K/mm3 (0.00-0.68); EOSINOPHILS PERCENT AUTO 1 % (0-6); Hematocrit 34.9 % (33.0-51.0); Hemoglobin 11.5 g/dL (11.5-16.0); IMMATURE GRAN ABSOLUTE AUTO 0.03 K/mm3 (0.00-0.10); IMMATURE GRAN PERCENT AUTO 0 % (0-1); LYMPHOCYTES ABSOLUTE AUTO 1.04 K/mm3 (0.84-5.20); LYMPHOCYTES PERCENT AUTO 12 % (21-46); MONOCYTES ABSOLUTE AUTO 0.99 K/mm3 (0.16-1.47); MONOCYTES PERCENT AUTO 11 % (4-13); Mean Corpuscular HGB 33.5 pg (26.0-34.0); Mean Corpuscular Volume 102 fL (80-100); Mean Platelet Volume 12.7 fL (9.1-12.4); NEUTROPHILS ABSOLUTE AUTO 6.91 K/mm3 (1.96-9.15); NEUTROPHILS PERCENT AUTO 76 % (41-73); Platelet Count 120 K/mm3 (150-400); RDW Coefficient Variation 12.4 % (11.7-14.2); RDW Standard Deviation 46.8 fL (35.1-46.3); Red Blood Cell Count 3.43 M/mm3 (3.80-5.20); White Blood Cell Count 9.07 K/mm3 (4.00-11.30)
[2020-02-14 03:46] LABS: Albumin, Blood 2.4 g/dL (3.4-5.0); Anion Gap 11 mmol/L (6-16); Blood Urea Nitrogen 43 mg/dL (8-24); CO2, Blood 27 mmol/L (21-32); Calcium, Blood 7.5 mg/dL (8.5-10.1); Chloride, Blood 102 mmol/L (98-108); Creatinine, Blood 3.32 mg/dL (0.40-1.00); Glomerular Filtration Rate 14 (60-); Glucose, Blood 102 mg/dL (70-99); Magnesium, Blood 1.8 mg/dL (1.6-2.4); Phosphorus, Blood 1.6 mg/dL (2.5-4.9); Potassium, Blood 3.6 mmol/L (3.5-5.5); Sodium, Blood 140 mmol/L (136-145)
--- NOTE | 2020-02-14 06:53 | NUR ---
SHIFT ASSESSMENT: PT OFF OF BIPAP AT START OF SHIFT WHEN AWAKE. PT OFF N/C AT 0000 AND HAS BEEN ON RA SINCE, SATS 96-100%. PT SPEAKING FULL SENTENCES W/O DIFFICULTY. LS CLEAR. VSS. PT REMAINS NPO WAITING FOR COVID RESULTS. ECHO THIS AM. REPORT OFF TO LUCIA HADDAD TO ASSUME CARE AT THIS TIME.
[2020-02-14 07:10] LABS: ANTIGLOMERULAR BM AB 6 units (0-20)
--- NOTE | 2020-02-14 08:19 | NUR ---
Recieved report from Helen HADDAD. Patient sitting up in bed with HOB at 30 degrees and awakens to verbal stimuli. She is able to answer questions and communicate her needs. She is curently on RA and sats 99%. She has 20ga IV to RFA and drssing intact and site WNL's. She has NS TKO infusing. She has 16Fr Luis draining to gravity small amount of yellow urine. She MAEw but fairly weak with transfer. She is NPO per ST and is aaiting swallow eval by radiology. ECHO in room now.
--- NOTE | 2020-02-14 11:45 | NUR ---
Patient has had PT, OT Dr Macias, Dr Delgado, and ST by to se her. We have sent another covid-19 sample for testing as the other was insuffient sample. She has bridgett advanced again by speech therapy to nectar thick and puree diet (renal). VSS, See EMR. She has been up in chair since physical therapy worked with her. She remains on RA and sats upper 90%'s and was 97% when working with physical therapy. Rdiographic swallow eval. canceled.
--- NOTE | 2020-02-14 13:22 | NUR ---
Patient was up in chair and fed self with good control with swallowing. She is currently back in bed resting on RA with sats 99%. VSS See EMR. She got bath from aids and tolerated well.
--- NOTE | 2020-02-14 15:40 | NUR ---
No significant canges with patient. She remains on RA and sats upper 90's. She is able to communicate her needs and uses call light appropriately.
--- NOTE | 2020-02-14 17:45 | NUR ---
Gave report to Jacqueline HADDAD for PCU 5 transfer. I tansfered all her personal belonging prior to bringing patient over and then had her ambulate from chair to wheelchair and pushed her over to PCU 5 where she transfered herself to the bed. She tolerated about 50% of dinner and showed no signs of aspiration. She had no cough, increase in temp or saturation drop pror to transfer. Jacqueline HADDAD helped with transfer when arriving to PCU. She remains on RA and sats 99% and VSS, See EMR.
--- NOTE | 2020-02-14 18:53 | NUR ---
echocardiogram complete
--- NOTE | 2020-02-14 19:15 | NUR ---
RELINQUISHED PATIENT CARE.
--- NOTE | 2020-02-14 21:02 | NUR ---
ASSUMED CARE OF PATIENT AT APPROXIMATELY 1905 FROM TREASURE Rivas RN. RICHARD ARRIVED TO UNIT FROM ICU SHORTLY BEFORE SHIFT CHANGE. PATIENT ALERT AND ORIENTED; CALLS APPROPRIATELY. PATIENT REPORTS SHE GOT OUT OF BED THREE TIMES TODAY. PATIENT IS WEAK. PATIENT DENIES PAIN, DIZZINESS OR NAUSEA. PATIENT REPORTS HER FEET HAVE SOME NUMBNESS AND TINGLING THAT MAY BE RELATED TO GETTING OUT OF BED TODAY; WORSE IN LEFT FOOT. PATIENT TAKES MEDS ONE AT A TIME IN APPLESAUCE; TUCKING CHIN TO SWALLOW; THICKENED LIQUIDS. NSR ON TELE; OXYGEN SATURATION ABOVE 90% ON ROOM AIR. URINARY CATH IN PLACE. IN ISOLATION TO R/O COVID. PATIENT CURRENTLY RESTING IN BED; CALL LIGHT IN REACH; BED IN LOWEST POSISTION; BED ALARM ON; WILL CONTINUE TO MONITOR AND ASSESS UNTIL END OF SHIFT.
[2020-02-15 03:53] LABS: BASOPHILS ABSOLUTE AUTO 0.01 K/mm3 (0.00-0.23); BASOPHILS PERCENT AUTO 0 % (0-2); EOSINOPHILS ABSOLUTE AUTO 0.19 K/mm3 (0.00-0.68); EOSINOPHILS PERCENT AUTO 2 % (0-6); Hematocrit 32.9 % (33.0-51.0); Hemoglobin 10.9 g/dL (11.5-16.0); IMMATURE GRAN ABSOLUTE AUTO 0.04 K/mm3 (0.00-0.10); IMMATURE GRAN PERCENT AUTO 1 % (0-1); LYMPHOCYTES ABSOLUTE AUTO 1.16 K/mm3 (0.84-5.20); LYMPHOCYTES PERCENT AUTO 13 % (21-46); MONOCYTES ABSOLUTE AUTO 1.18 K/mm3 (0.16-1.47); MONOCYTES PERCENT AUTO 14 % (4-13); Mean Corpuscular HGB 33.5 pg (26.0-34.0); Mean Corpuscular HGB Conc 33.1 g/dL (31.5-36.5); Mean Corpuscular Volume 101 fL (80-100); Mean Platelet Volume 12.9 fL (9.1-12.4); NEUTROPHILS ABSOLUTE AUTO 6.14 K/mm3 (1.96-9.15); NEUTROPHILS PERCENT AUTO 70 % (41-73); Platelet Count 116 K/mm3 (150-400); RDW Coefficient Variation 12.2 % (11.7-14.2); RDW Standard Deviation 45.6 fL (35.1-46.3); Red Blood Cell Count 3.25 M/mm3 (3.80-5.20); White Blood Cell Count 8.72 K/mm3 (4.00-11.30)
[2020-02-15 04:22] LABS: Albumin, Blood 2.4 g/dL (3.4-5.0); Anion Gap 12 mmol/L (6-16); Blood Urea Nitrogen 57 mg/dL (8-24); Bun/Creatinine Ratio 13.7 (12.0-20.0); CO2, Blood 26 mmol/L (21-32); Calcium, Blood 7.4 mg/dL (8.5-10.1); Chloride, Blood 100 mmol/L (98-108); Creatinine, Blood 4.15 mg/dL (0.40-1.00); Glomerular Filtration Rate 11 (60-); Glucose, Blood 158 mg/dL (70-99); Magnesium, Blood 1.8 mg/dL (1.6-2.4); Phosphorus, Blood 1.4 mg/dL (2.5-4.9); Potassium, Blood 2.9 mmol/L (3.5-5.5); Sodium, Blood 138 mmol/L (136-145)
--- NOTE | 2020-02-15 05:53 | NUR ---
DR. SINGH ROUNDING THIS MORNING. UPDATED ON PHOSPHORUS OF 1.4 AND POTASSIUM OF 2.9; ORDERS RECIEVED. PATIENT SLEPT ABOUT SEVEN HOURS. COMPLAINT OF STOMACH PAIN EALIER IN SHIFT; REQUESTED YOGURT; NO FURTHER COMPLAINTS. VSS. WILL CONTINUE TO MONITOR AND ASSESS UNTIL END OF SHIFT.
--- NOTE | 2020-02-15 06:48 | NUR ---
PATIENT TO CT.
--- NOTE | 2020-02-15 12:59 | NUR ---
PT WAS UP TO BATHROOM W/O USING CALL LIGHT, USED BATHROOM ASSIST LIGHT FOR ASSITANCE BACK TO BED, PT AMBULATED BACK TO BED WITH SLOW TEADY GAIT WITH FWW. PT REPORTS PAIN TO RFA IV WHERE POTASSIUM IS INFUSING SLOWLY SHE HAS NOT BEEN ABLE TO TOLERATE POTASSIUM AT ORDERED RATE. INFUSION IS SWITCHED TO ABEL IV WHICH SHE REPORTS PAIN IS LESSENING. RFA IV REMAINS PATENT, NO REDNESS OR SWELLING NOTED AROUND IV SITE. PT ALERT, ORIENTED TO SELF AND PLACE. LS ARE CLEAR T/O WITH SLIGHT COARSENESS NOTED TO LOWER LOBES.
--- NOTE | 2020-02-15 14:30 | NUR ---
Report received from Mia Gómez RN. The pt was at the time, in the shower with the assistance of TARIK Zaldivar. Kimmie reported to me that the pt has had 5 episodes of diarrhea today.
--- NOTE | 2020-02-15 14:44 | NUR ---
Call to Dr. Skinner regarding the 4 episodes of diarrhea this afternoon. GI PCR ordered. The pt described the last episode as "explosive" and immediately following the third episode.
--- NOTE | 2020-02-15 15:12 | NUR ---
The pt is lying in bed, on room air, pleasantly conversant, alert and oriented and appropriate in conversation about ongoing events, hospitalization, and ongoing plan of care. States that her chest xray this morning showed no infection. Verbalized understanding that we need to get a stool sample the next time she has a bowel movement.
--- NOTE | 2020-02-15 18:29 | NUR ---
summary This afternoon Nolvia has been cheerful, conversant, alert and oriented. She unfortunately has been up to the Bedside commode for what she counted as the 8th time today with a small, liquid brown stool. She had a fair appetite for dinner, sitting up in the chair to eat. Her vital signs were good, and her breathing is good on room air. Dr. Macias here to see her this evening, and states that from a respiratory standpoint, he thinks that she should be able to go home.
[2020-02-15 19:34] LABS: Campylobacter Sp Not Detected (NOT DETECT)
[2020-02-15 19:35] LABS: Adenovirus F 40/41 Not Detected (NOT DETECT); Astrovirus Not Detected (NOT DETECT); Cryptosporidium Not Detected (NOT DETECT); Cyclospora Cayetanensis Not Detected (NOT DETECT); E. Coli O157 Not Detected (NOT DETECT); Entamoeba Histolytica Not Detected (NOT DETECT); Enteroaggregative E. coli-EAEC Not Detected (NOT DETECT); Enteropathogenic E. coli-EPEC Not Detected (NOT DETECT); Enterotoxigenic E. coli-ETEC Not Detected (NOT DETECT); Giardia Lamblia Not Detected (NOT DETECT); Norovirus GI/GII Not Detected (NOT DETECT); Plesiomonas Shigelloides Not Detected (NOT DETECT); Rotavirus A Not Detected (NOT DETECT); Salmonella Sp Not Detected (NOT DETECT); Sapovirus Not Detected (NOT DETECT); Shiga Toxin-prod E. coli-STEC Not Detected (NOT DETECT); Shigella/Enteroin E. coli-EIEC Not Detected (NOT DETECT); Vibrio Cholerae Not Detected (NOT DETECT); Vibrio Sp Not Detected (NOT DETECT); Yersinia Enterocolitica Not Detected (NOT DETECT)
[2020-02-16 06:41] LABS: Hematocrit 29.5 % (33.0-51.0); Hemoglobin 9.8 g/dL (11.5-16.0)
--- NOTE | 2020-02-16 07:29 | NUR ---
SHIFT SUMMARY PT MEDICAL NO TELE STATUS. A&O X4. VSS. NO EVENTS OVERNIGHT. PT AMBULATING W/ FWW, TOLERATING WELL. PT DENIES SOB W/ AMBULATION. SPO2 > 92% ON RA. MARHURKAR IN PLACE TO R NECK. RAYMUNDO CATH PATENT AND DRAINING. PT EXPRESSING CONCERN FOR GOING MULTIPLE DAYS W/OUT TAKING HER BIPOLAR MEDICATIONS & NOT SLEEPING WELL. CONCERN PASSED ON TO DAY SHIFT RN W/ HOME MEDICATIONS TO BE ADDRESSED BY DAY SHIFT MD. OTHERWISE NO EVENTS OVERNIGHT. REPORT GIVEN TO DAY SHIFT RN ASSUMING CARE OF PT.
--- NOTE | 2020-02-16 07:49 | NUR ---
ASSUMED CARE OF PATIENT, SITTING UP IN CHAIR. OREINTED TO CALL LIGHT. DENIES ANY PAIN, NAUSEA, SOB. SLIGHT BLOODY NOSE, PATEINT REPORTS FREQUENTLY GETS THEM DUE TO DRYNESS IN NOSE. PATIENT UPSET R/T DIET ORDER AND ANXIOUS TO SPEAK WIHT SPEACH THERAPY TO POTENTIALLY ADVANCE.
--- NOTE | 2020-02-16 18:10 | NUR ---
END SHIFT SUMMARY PATIENT WITHOUT C/O PAIN, NAUSEA, SOB T/O DAY. WORKED WITH PT/OT WITHOUT DIFFICULTY. DIALYSIS POSTPONED TODAY PER NOTIFICATION FROM [facility]. HOME MEDS TO RESTART TONJACOBO. ZACKARY D/C'D AT NOON. PT REPORTS VOIDS*2 SINCE DISCONTINUED WITHOUT DIFFICULTY. RESENT 3RD R/O COVID TEST. PT DENIES ANY DIFFICULTY AT THIS TIME. WILL REPORT OFF TO ONCOMING SHIFT AT APPROPRIATE TIME.
[2020-02-16 21:37] LABS: Albumin, Blood 2.6 g/dL (3.4-5.0); Anion Gap 10 mmol/L (6-16); Blood Urea Nitrogen 51 mg/dL (8-24); Bun/Creatinine Ratio 11.9 (12.0-20.0); CO2, Blood 25 mmol/L (21-32); Calcium, Blood 6.9 mg/dL (8.5-10.1); Chloride, Blood 103 mmol/L (98-108); Creatinine, Blood 4.28 mg/dL (0.40-1.00); Glomerular Filtration Rate 11 (60-); Glucose, Blood 154 mg/dL (70-99); Magnesium, Blood 1.9 mg/dL (1.6-2.4); Phosphorus, Blood 3.6 mg/dL (2.5-4.9); Potassium, Blood 3.7 mmol/L (3.5-5.5); Sodium, Blood 138 mmol/L (136-145)
[2020-02-17 03:40] LABS: Hematocrit 26.5 % (33.0-51.0); Hemoglobin 8.7 g/dL (11.5-16.0)
[2020-02-17 03:55] LABS: Albumin, Blood 2.3 g/dL (3.4-5.0); Anion Gap 9 mmol/L (6-16); Blood Urea Nitrogen 50 mg/dL (8-24); Bun/Creatinine Ratio 11.8 (12.0-20.0); CO2, Blood 27 mmol/L (21-32); Calcium, Blood 6.7 mg/dL (8.5-10.1); Chloride, Blood 105 mmol/L (98-108); Creatinine, Blood 4.23 mg/dL (0.40-1.00); Glomerular Filtration Rate 11 (60-); Glucose, Blood 101 mg/dL (70-99); Magnesium, Blood 1.7 mg/dL (1.6-2.4); Phosphorus, Blood 3.8 mg/dL (2.5-4.9); Potassium, Blood 3.5 mmol/L (3.5-5.5); Sodium, Blood 141 mmol/L (136-145)
--- NOTE | 2020-02-17 04:56 | NUR ---
SHIFT SUMMARY PT SLEEPING IN ROOM COMFORTABLY AT THIS TIME. NO ACUTE CHANGES IN STATUS T/O NIGHT. PT REPORTED TROUBLE SLEEPING EARLY IN SHIFT, REPORTED RESTLESS LEGS. PT WAS GIVEN HEAT PAD TO ATTEMPT TO RELIEVE DISCOMFORT. PT REPORTED WORKED A LITTLE BUT WAS STILL UNABLE TO SLEEP. CALLED AND ORDERS WERE GIVEN FOR PAIN MED. PT WAS MEDICATED PER EMAR, AND HAS BEEN SLEEPING SOUNDLY EVER SINCE. RESP EVEN UNLABORED ON RA W/ SATS >92%. DENIED ANY CP. PT IS INDEPENDENT IN ROOM W/ 4WW. CALLS APPROPRIATELY. PER REPORT PT WAS TO HAVE DIALYSIS YESTERDAY AND IT DID NOT OCCURE. PT EXPECTING DIALYSIS TODAY. NEW NURJERKER IN R SIDE OF NECK, DRESSING HAS SCANT BLOOD, NOT NEW PER REPORT. PT DENIED OTHER NEEDS. CALL LIGHT IN REACH.
--- NOTE | 2020-02-17 17:15 | NUR ---
SHIFT NOTE PT HAS BEEN INDEPENDANT IN ROOM T/O DAY. DENIES SOB OR CP. PT HAS BEEN CHANGED TO MECHANICAL DIET WITH THIN LIQUIDS WHICH SHE IS TOLERATING WELL. PT ALERT AND ORIENTED IS STILL SLIGHTLY CONFUSED BUT ANSWERS QUESTIONS APPROPRAIATELY. PT HAS RECIEVED DIALYSIS TODAY, WITH 1 UNIT [facility] THAT WAS INFUSED WITH DIALYSIS
[2020-02-18 03:26] LABS: Hematocrit 30.2 % (33.0-51.0); Hemoglobin 9.9 g/dL (11.5-16.0)
[2020-02-18 03:45] LABS: Albumin, Blood 2.3 g/dL (3.4-5.0); Anion Gap 7 mmol/L (6-16); Blood Urea Nitrogen 35 mg/dL (8-24); Bun/Creatinine Ratio 10.2 (12.0-20.0); CO2, Blood 27 mmol/L (21-32); Calcium, Blood 7.5 mg/dL (8.5-10.1); Chloride, Blood 104 mmol/L (98-108); Creatinine, Blood 3.42 mg/dL (0.40-1.00); Glomerular Filtration Rate 14 (60-); Glucose, Blood 116 mg/dL (70-99); Magnesium, Blood 1.9 mg/dL (1.6-2.4); Phosphorus, Blood 2.9 mg/dL (2.5-4.9); Potassium, Blood 3.6 mmol/L (3.5-5.5); Sodium, Blood 138 mmol/L (136-145)
--- NOTE | 2020-02-18 05:29 | NUR ---
END OF SHIFT SUMMARY NO ACUTE CHANGES THIS SHIFT. VSS. PT HAS BEEN INDEPENDENT IN ROOM. MERHERKER IN PLACE. PT VOIDING INTO HAT. HAS REQUIRED SOME PAIN MEDICATION FOR LEGS. STATES DEFINITE WEAKNESS/LETHARGY POST DIALYSIS BUT PRESENTS FULLY AXO. OTHERWISE, WILL CONTINUE TO MONITOR UNTIL SHIFT CHANGE.
--- NOTE | 2020-02-18 20:26 | NUR ---
SHIFT SUMMARY PT A&Ox3; CLAM AND COOPERATIVE WITH CARE. PT RESTING IN BED FOR MAJORITY OF SHIFT, IND IN ROOM, STATES SHE WAS BEEN WALKING IN ROOM TO BUILD STAMINA. PT UP IN CHIAR FOR MEALS. PT DENIES PAIN, CHEST PAIN/PRESSURE, NASUEA, SOB AND DIZZINESS. PT REPROTS LETHARGY SHE STATES IS R/T DIALYSIS YESTERDAY. VSS. NO OTHER ACUTE CHANGES NOTED DURING SHIFT. REPORT GIVEN TO ONCOMING RN.
[2020-02-19 03:26] LABS: Hematocrit 29.7 % (33.0-51.0); Hemoglobin 9.7 g/dL (11.5-16.0)
[2020-02-19 03:44] LABS: Albumin, Blood 2.3 g/dL (3.4-5.0); Anion Gap 6 mmol/L (6-16); Blood Urea Nitrogen 39 mg/dL (8-24); CO2, Blood 29 mmol/L (21-32); Calcium, Blood 7.2 mg/dL (8.5-10.1); Chloride, Blood 104 mmol/L (98-108); Creatinine, Blood 3.89 mg/dL (0.40-1.00); Glomerular Filtration Rate 12 (60-); Glucose, Blood 89 mg/dL (70-99); Phosphorus, Blood 4.3 mg/dL (2.5-4.9); Potassium, Blood 4.4 mmol/L (3.5-5.5); Sodium, Blood 139 mmol/L (136-145)
--- NOTE | 2020-02-19 05:57 | NUR ---
END OF SHIFT SUMMARY NO ACUTE CHANGES THIS SHIFT. VSS. PT AMBULATING AROUND IN ROOM INDEPENDENTLY. MERHERKER STILL SECURED IN PLACE. STILL AWAITING COVID RESULTS. PT HAS BEENN RESTING T/O THE NIGHT QUIETLY. WILL CONTINUE TO MONITOR UNTIL SHIFT CHANGE.
--- NOTE | 2020-02-19 18:11 | NUR ---
NO ACUTE CHANGES THIS SHIFT. PATIENT AMBULATIG INDEPENDENTLY IN ROOM. PATIENT HAD AN EPISODE OF EMESIS NEAR THE BEGINNING OF THIS SHIFT, NO ADDITIONAL N/V THIS SHIFT. [facility] PERMACATH PLACEMENT PENDING COVID RESULTS.
[2020-02-20 04:08] LABS: Hematocrit 29.8 % (33.0-51.0); Hemoglobin 9.6 g/dL (11.5-16.0)
[2020-02-20 04:27] LABS: Albumin, Blood 2.4 g/dL (3.4-5.0); Anion Gap 6 mmol/L (6-16); Blood Urea Nitrogen 41 mg/dL (8-24); Bun/Creatinine Ratio 10.3 (12.0-20.0); CO2, Blood 29 mmol/L (21-32); Calcium, Blood 6.9 mg/dL (8.5-10.1); Chloride, Blood 104 mmol/L (98-108); Creatinine, Blood 3.98 mg/dL (0.40-1.00); Glomerular Filtration Rate 12 (60-); Glucose, Blood 86 mg/dL (70-99); Sodium, Blood 139 mmol/L (136-145)
--- NOTE | 2020-02-20 05:42 | NUR ---
END OF SHIFT SUMMARY NO ACUTE CHANGES THIS SHIFT. VSS. AWAITING COVID RESULTS. PT INDEPENDENT IN ROOM. IS FOLOWING ALL SWALLOW PRECAUTIONS AND CALLS APPROPRIATELY. WILL CONTINUE TO MONITOR UNTIL SHIFT CHANGE.
--- NOTE | 2020-02-20 18:19 | NUR ---
PT SUMMARY: PT WAS OFF OF ISOLATION PRECAUTION FOR R/O COVID, 3 TESTS CAME BACK INCONCLUSIVE, NOTED PT HAS BEEN ASYMPTOMATIC FOR 3 DAYS AND CAN BE OFF OF PRECAUTION. PT HAD CHEST XRAY DONE TODAY RESULT SUGGESTIVE FOR PNA, PROVIDER TO REVIEW RESULT. PT HAS DIALYSIS TODAY PT STATED TODAY'S DIALYSIS IS MUCH BETTER THAN HER PREVIOUS ONES. MERHUKER CATH ON RIGHT NECK INTACT. PT TO GET PERMACATH PLACED POSSIBLY TOMORROW. PT HAS BEEN INDEPENDENT IN THE ROOM AMBULATING WIHOUT ANY ASSISTIVE DEVICES, PT STILL ON [facility] SOFT DIET, AND SWALLOWING PRECAUTION. ABLE TO MAKE NEEDS KNOWN TO CONTINUE TO MONITOR
[2020-02-21 03:59] LABS: Hemoglobin 10.8 g/dL (11.5-16.0)
[2020-02-21 04:18] LABS: Albumin, Blood 2.5 g/dL (3.4-5.0); Anion Gap 4 mmol/L (6-16); Blood Urea Nitrogen 16 mg/dL (8-24); Bun/Creatinine Ratio 6.6 (12.0-20.0); CO2, Blood 33 mmol/L (21-32); Calcium, Blood 8.6 mg/dL (8.5-10.1); Chloride, Blood 101 mmol/L (98-108); Creatinine, Blood 2.44 mg/dL (0.40-1.00); Glomerular Filtration Rate 21 (60-); Glucose, Blood 84 mg/dL (70-99); Phosphorus, Blood 4.6 mg/dL (2.5-4.9); Potassium, Blood 4.2 mmol/L (3.5-5.5); Sodium, Blood 138 mmol/L (136-145)
--- NOTE | 2020-02-21 05:25 | NUR ---
SHIFT SUMMARY PT SLEEPING IN ROOM COMFORTABLY AT THIS TIME. NO ACUTE CHANGES IN STATUS T/O NIGHT. PT SLEPT WELL AND DENIED NEEDS. PT IS INDEPENDENT IN ROOM AND CALLS APPROPRIATELY. RESP EVEN UNLABORED ON RA W/ SATS >92%. DENIES CP OR SOB. DENIES OTHER NEEDS. PT TO RECEIVE PERMACATH TODAY FOR DIALYSIS. PT HAS BEEN KEPT NPO SINCE MIDNIGHT. CALL LIGHT IN REACH.
--- NOTE | 2020-02-21 17:05 | NUR ---
SHIFT SUMMARY NO ACUTE CHANGES THROUGHOUT SHIFT. PT REMAINED AWAKE & ALERT, PLEASANT, & COOPERATIVE W/ CARE. VSS. PT DENIED ANY C/O CHEST PAIN/PRESSURE OR SOB. PT IS S/P PERMACATH PLACEMENT TODAY, SITE REMAINS WNL, DRESSING C/D/I. TWO DRESSINGS PRESENT TO RIGHT NECK ABOVE PERMACATH SITE REMAIN C/D/I. CONTINUE NEURO CHECKS Q4H PER DR. GUERIN. PLAN FOR PT TO BE DISCHARGED TOMORROW AFTER DIALYSIS W/ HOME HEALTH. PT CURRENTLY RESTING IN BED IN NO DISTRESS. WILL CONTINUE TO MONITOR UNTIL END OF SHIFT.
[2020-02-22 03:38] LABS: Hematocrit 32.3 % (33.0-51.0); Hemoglobin 10.2 g/dL (11.5-16.0)
[2020-02-22 03:59] LABS: Albumin, Blood 2.5 g/dL (3.4-5.0); Anion Gap 6 mmol/L (6-16); Blood Urea Nitrogen 20 mg/dL (8-24); Bun/Creatinine Ratio 6.2 (12.0-20.0); CO2, Blood 29 mmol/L (21-32); Calcium, Blood 7.8 mg/dL (8.5-10.1); Chloride, Blood 100 mmol/L (98-108); Creatinine, Blood 3.23 mg/dL (0.40-1.00); Glomerular Filtration Rate 15 (60-); Glucose, Blood 91 mg/dL (70-99); Magnesium, Blood 2.2 mg/dL (1.6-2.4); Phosphorus, Blood 5.5 mg/dL (2.5-4.9); Potassium, Blood 4.6 mmol/L (3.5-5.5); Sodium, Blood 135 mmol/L (136-145)
--- NOTE | 2020-02-22 05:12 | NUR ---
SHIFT SUMMARY PT SLEEPING IN ROOM COMFORTABLY AT THIS TIME. NO ACUTE CHANGES IN STATUS T.O NIGHT. PT SLEPT WELL AND DENIED CP OR SOB T/O NIGHT. DENIED ANY NEEDS. PT WAS INDEPENDENT IN ROOM. REPORTED PAIN ONCE DURING NIGHT AT [facility]. MEDUCATED PER EMAR. CALL LIGHT IN REACH.
--- NOTE | 2020-02-22 09:29 | NUR ---
PT TO DIALYSIS
[2020-02-22] MEDS ORDERED: CALCIUM 600 +1 EAC4 PO (10:22)
--- NOTE | 2020-02-22 10:58 | NUR ---
Pt educated on principles of diffusion and how the dialyzer removes high serum levels of electrolytes and other metabolic waste. Untrafiltration explained and fluid restriction discussed. RN explained secondary functions of kidneys also: pH balance, RBC production, Bone/mineral metabolism. RN also discussed differences of prerenal diet and ESRD Diet. Pt verbalized understanding and was grateful for the EDU. She has high retention d/t Masters degree in Chemistry, pt reports.
--- NOTE | 2020-02-22 14:00 | NUR ---
PT EXPRESSED UNDERSTANDING OF DC TEACHING, EXPRESSED UNDERSTANDING OF MEDICATION CHANGE, EXPRESSED UNDERSTANDING OF DIALYSIS APOINTMENT TOMORROW AFTERNOON WHERE DR SINGH WILL MEET WITH HER DURING HER DIALYSIS APPOINTMENT. PT PERMACATH DRESSING WAS CHANGED [facility] DIALYSIS NURSE PRIOR TO DC. IVs X2 WERE REMOVED AND PRESSURE DRESSED
== END 2020-02-22 14:01 | disposition home health service (06) | DRG 682 ==
LOC: ER 15:43 → ICUW 20:15 → PCU 20:15 → ICUW 02-11 20:38 → PCU 02-14 18:45 → ICUW 02-14 18:45 → PCU 02-14 18:45
PROVIDERS: Emergency Medicine; Family Medicine; Internal Medicine Critical Care Medicine; Internal Medicine Nephrology; Nurse Practitioner Acute Care; ADMIT Internal Medicine
PROC: 5A09357 Assistance with Respiratory Ventilation, Less than 24 Consecutive Hours, Continuous Positive Airway Pressure (ICD-10-PCS; principal; 2020-02-10)
PROC: 02HV33Z Insertion of Infusion Device into Superior Vena Cava, Percutaneous Approach (ICD-10-PCS; 2020-02-10)
PROC: B548ZZA Ultrasonography of Superior Vena Cava, Guidance (ICD-10-PCS; 2020-02-10)
DX: N17.9 Acute kidney failure, unspecified (principal); G92 Toxic encephalopathy; J96.01 Acute respiratory failure with hypoxia; I50.21 Acute systolic (congestive) heart failure; J18.9 Pneumonia, unspecified organism; E87.1 Hypo-osmolality and hyponatremia; E85.1 Neuropathic heredofamilial amyloidosis; E87.2 Acidosis; N39.0 Urinary tract infection, site not specified; J45.909 Unspecified asthma, uncomplicated; N18.5 Chronic kidney disease, stage 5; Z87.891 Personal history of nicotine dependence; Z95.0 Presence of cardiac pacemaker; F31.9 Bipolar disorder, unspecified; N18.3 Chronic kidney disease, stage 3 (moderate); G43.909 Migraine, unspecified, not intractable, without status migrainosus; I12.9 Hypertensive chronic kidney disease with stage 1 through stage 4 chronic kidney disease, or unspecified chronic kidney disease; Z98.82 Breast implant status; E03.9 Hypothyroidism, unspecified; G25.0 Essential tremor; E87.5 Hyperkalemia; E83.39 Other disorders of phosphorus metabolism; E55.9 Vitamin D deficiency, unspecified; E87.70 Fluid overload, unspecified; R13.10 Dysphagia, unspecified; D69.6 Thrombocytopenia, unspecified; E87.6 Hypokalemia; B95.2 Enterococcus as the cause of diseases classified elsewhere
CPT/HCPCS: 0097U; 0099U; 36415; 36430; 36558; 36600; 51702; 70450; 71045; 71046; 76770; 76937; 80048; 80053; 80069; 80074; 80202; 81001; 81050; 82306; 82550; 82565; 82652; 82784; 82803; 82947; 83516; 83520; 83605; 83735; 83880; 83970; 84100; 84145; 84156; 84165; 84166; 84550; 85014; 85018; 85025; 85027; 86038; 86256; 86317; 86334; 86335; 86850; 86900; 86901; 86923; 87040; 87077; 87086; 87186; 87804; 92526; 92610; 93005; 93010; 93306; 94640; 94660; 94762; 96361; 96365; 97110; 97116; 97162; 97166; 97530; 97535; 99152; 99285-25; A9270; C1750; C1769; J0610; J0696; J0881; J1644; J1956; J2060; J2250; J2405; J3010; J3370; J3480; J7030; J7040; J7050; J7060; J7070; P9016; P9612

== ENCOUNTER 2020-02-26 09:32 | Inpatient (IN) | payer MEDICARE ==
[~2020-02-26] VITALS: Ht 142.2 cm; Wt 50.0 kg
[~2020-02-26 09:32] MED LIST changes: -Melatonin3 M1 PO; -VITAMIN B-121000 MCG PO
[2020-02-26 10:02] LABS: Source, Urine Clean Catch
[2020-02-26 10:15] LABS: Bilirubin, Urine Neg (Neg); Blood, Urine 5+ (Neg); Glucose Qualitative, Urine Neg (Neg); Ketones, Urine Neg (Neg); Leukocyte Esterase, Urine 1+ (Neg); Nitrite, Urine Neg (Neg); Protein, Urine 1+ (Neg); Urobilinogen, Urine NORM (Normal)
[2020-02-26 10:27] LABS: Appearance, Urine Clear (Clear); Color, Urine Pale Yellow (P-Yellow)
[2020-02-26 10:29] LABS: White Blood Cells, Urine 0-2 /hpf (0-5)
[2020-02-26 10:30] LABS: Bacteria Few /hpf; Squamous Epithelial Cells Few /hpf (Few)
[2020-02-26 10:34] LABS: BASOPHILS ABSOLUTE AUTO 0.05 K/mm3 (0.00-0.23); BASOPHILS PERCENT AUTO 1 % (0-2); EOSINOPHILS ABSOLUTE AUTO 0.11 K/mm3 (0.00-0.68); EOSINOPHILS PERCENT AUTO 2 % (0-6); Hematocrit 34.8 % (33.0-51.0); IMMATURE GRAN ABSOLUTE AUTO 0.03 K/mm3 (0.00-0.10); IMMATURE GRAN PERCENT AUTO 1 % (0-1); LYMPHOCYTES ABSOLUTE AUTO 0.83 K/mm3 (0.84-5.20); LYMPHOCYTES PERCENT AUTO 14 % (21-46); MONOCYTES PERCENT AUTO 10 % (4-13); Mean Corpuscular HGB 32.4 pg (26.0-34.0); Mean Corpuscular HGB Conc 31.6 g/dL (31.5-36.5); Mean Corpuscular Volume 103 fL (80-100); Mean Platelet Volume 10.9 fL (9.1-12.4); NEUTROPHILS ABSOLUTE AUTO 4.36 K/mm3 (1.96-9.15); NEUTROPHILS PERCENT AUTO 73 % (41-73); Platelet Count 142 K/mm3 (150-400); RDW Coefficient Variation 14.1 % (11.7-14.2); RDW Standard Deviation 53.1 fL (35.1-46.3); Red Blood Cell Count 3.39 M/mm3 (3.80-5.20); White Blood Cell Count 5.98 K/mm3 (4.00-11.30)
[2020-02-26 10:38] LABS: Albumin, Blood 2.6 g/dL (3.4-5.0); Albumin/Globulin Ratio 0.7 (0.8-1.8); Bilirubin, Total 0.6 mg/dL (0.1-1.0); Bun/Creatinine Ratio 3.7 (12.0-20.0); Calcium, Blood 7.5 mg/dL (8.5-10.1); Creatinine, Blood 1.07 mg/dL (0.40-1.00); Globulin, Blood 3.6 g/dL (2.2-4.0); Potassium, Blood 2.8 mmol/L (3.5-5.5); Total Protein, Blood 6.2 g/dL (6.4-8.2)
[2020-02-26 11:32] LABS: Triglycerides 98 mg/dL (30-160)
[2020-02-26 11:42] LABS: Magnesium, Blood 2.1 mg/dL (1.6-2.4); Phosphorus, Blood 1.8 mg/dL (2.5-4.9)
[2020-02-26] MEDS ORDERED: Melatonin3 M1 PO (12:00)
[2020-02-26] MEDS ORDERED: VITAMIN B-121000 MCG PO (12:00)
[2020-02-26 13:23] LABS: Magnesium, Blood 1.9 mg/dL (1.6-2.4); Phosphorus, Blood 2.2 mg/dL (2.5-4.9); Potassium, Blood 2.7 mmol/L (3.5-5.5)
--- NOTE | 2020-02-26 17:05 | NUR ---
PT SETTLED INTO HER ROOM AT 1204. PT TREATED FOR PAIN PER EMAR X1 AND THIS HAS BEEN EFFECTIVE. PT DOES HAVE A MILD FEVER AND WILL BE TREATED PER EMAR. PT SITTING IN BED READING AT THIS TIME. WILL CONTINUE TO MONITOR.
--- NOTE | 2020-02-27 03:55 | NUR ---
SHIFT SUMMARY ASSUMED CARE OF PT AT 1900. PT IS A/OX4, DENIES N/T IN EXTREMITIES. HEART SOUNDS REGULAR, TELE SHOWS SINUS @ 65, DENIES CP AT THIS TIME. LUNG SOUNDS CLEAR, DENIES SOB AT THIS TIME. PT CAN WALK TO THE BATHROOM WITH SBA. ABD SOFT AND A LITTLE TENDER. URINE CLEAR AND YELLOW. PT C/O BEING HUNGRY. DIALYSIS PORT W/O S/SX OF INFECTION. PT HAS BRUSING T/O. PT SLEPT MOST OF THE NIGHT, NO ACUTE EVENTS DURING THE NIGHT. CALL LIGHT IN REACH, BED IN LOWEST POSTION, WILL CONTINUE TO MONITOR UNTIL DAYSHIFT NURSE ARRIVES.
[2020-02-27 05:24] LABS: BASOPHILS ABSOLUTE AUTO 0.03 K/mm3 (0.00-0.23); BASOPHILS PERCENT AUTO 1 % (0-2); EOSINOPHILS ABSOLUTE AUTO 0.14 K/mm3 (0.00-0.68); EOSINOPHILS PERCENT AUTO 3 % (0-6); Hematocrit 30.1 % (33.0-51.0); Hemoglobin 9.4 g/dL (11.5-16.0); IMMATURE GRAN ABSOLUTE AUTO 0.02 K/mm3 (0.00-0.10); IMMATURE GRAN PERCENT AUTO 0 % (0-1); LYMPHOCYTES ABSOLUTE AUTO 1.19 K/mm3 (0.84-5.20); LYMPHOCYTES PERCENT AUTO 22 % (21-46); MONOCYTES ABSOLUTE AUTO 0.59 K/mm3 (0.16-1.47); MONOCYTES PERCENT AUTO 11 % (4-13); Mean Corpuscular HGB 32.3 pg (26.0-34.0); Mean Corpuscular HGB Conc 31.2 g/dL (31.5-36.5); Mean Corpuscular Volume 103 fL (80-100); Mean Platelet Volume 10.7 fL (9.1-12.4); NEUTROPHILS ABSOLUTE AUTO 3.43 K/mm3 (1.96-9.15); NEUTROPHILS PERCENT AUTO 64 % (41-73); Platelet Count 132 K/mm3 (150-400); RDW Coefficient Variation 14.2 % (11.7-14.2); RDW Standard Deviation 53.5 fL (35.1-46.3); Red Blood Cell Count 2.91 M/mm3 (3.80-5.20)
[2020-02-27 05:49] LABS: Albumin, Blood 2.3 g/dL (3.4-5.0); Albumin/Globulin Ratio 0.7 (0.8-1.8); Bilirubin, Total 0.4 mg/dL (0.1-1.0); Bun/Creatinine Ratio 6.7 (12.0-20.0); Creatinine, Blood 2.08 mg/dL (0.40-1.00); Globulin, Blood 3.1 g/dL (2.2-4.0); Magnesium, Blood 2.2 mg/dL (1.6-2.4); Potassium, Blood 3.4 mmol/L (3.5-5.5); Total Protein, Blood 5.4 g/dL (6.4-8.2)
[2020-02-27 06:01] LABS: Phosphorus, Blood 5.5 mg/dL (2.5-4.9)
--- NOTE | 2020-02-27 15:30 | NUR ---
PATIENT REMAINS NPO R/T PANCREATITIS. SHE DENIES PAIN OR DISCOMFORT IN HER ABDOMEN DURING THIS SHIFT. SHE IS RECIEVEING CLINIMIX FOR NUTRITIONAL VALUE WHILE NPO. SHE IS SUPPOSED TO RECIEVE DIALYSIS THIS AFTERNOON HOWEVER SHE WAS PUSHED OFF TO 1100, THEN 1400 AND STILL NO DIALYSIS AT THIS TIME. WILL CONTINUE TO MONITOR.
--- NOTE | 2020-02-28 04:44 | NUR ---
SHIFT SUMMARY ADMITTED FOR PANCREATITIS. FULL CODE. PLAN IS TO MONITOR LIVER ENZYMES AND ADVANCE DIET TOLERATED. NPO FOR NOW. SHE IS ON RA, INDEPENDENT, DIALYSIS PT. DIALYSIS PORT IN RT CHEST WALL. PACEMAKER IN PLACE. PILLS TAKEN WHOLE W/APPLESAUCE. TELEMETRY IS MONITORING: NSR @ 77 BPM. HEPARIN FOR DVT PROPHYLAXIS. CLINIMIX IS INFUSING @ 50 ML/HR. HX: ESSENTIAL TREMORS, HTN, CKD3, HYPOTHYROID, VIT B12 DEFICIENCY, ASTHMA, BIPOLAR, MIGRAINES, OSTEOPOROSIS. LIPASE WAS 2948 ON ADMIT, AWAITING MORNING LABS. SHE HAS BEEN RUNNING HYPERTENSIVE. SHE IS A&O X4 AND ABLE TO MAKE HER NEEDS KNOWN.
[2020-02-28 05:18] LABS: Hematocrit 30.7 % (33.0-51.0); Hemoglobin 9.6 g/dL (11.5-16.0)
[2020-02-28 05:59] LABS: Albumin, Blood 2.3 g/dL (3.4-5.0); Anion Gap 3 mmol/L (6-16); Blood Urea Nitrogen 13 mg/dL (8-24); Bun/Creatinine Ratio 7.4 (12.0-20.0); CO2, Blood 33 mmol/L (21-32); Calcium, Blood 8.4 mg/dL (8.5-10.1); Chloride, Blood 104 mmol/L (98-108); Creatinine, Blood 1.75 mg/dL (0.40-1.00); Glomerular Filtration Rate 30 (60-); Glucose, Blood 93 mg/dL (70-99); Magnesium, Blood 1.9 mg/dL (1.6-2.4); Phosphorus, Blood 4.7 mg/dL (2.5-4.9); Potassium, Blood 3.6 mmol/L (3.5-5.5); Sodium, Blood 140 mmol/L (136-145)
--- NOTE | 2020-02-28 16:58 | NUR ---
ALERT. ORIENTED. TOLERATING CLEAR LIQUIDS WELL. DENIES ABD PAIN. INDEPENDENT IN THE ROOM W/STEADY GAIT. UNLABORED RESPIRATIONS. IV PATENT. PLEASANT. COOPERATIVE. WCTM
--- NOTE | 2020-02-29 04:49 | NUR ---
74 year old Female with pancreatitis which began about a week ago with abd pain. PT recently began on dialysis after she said she went into renal failure. She had RT upper chest perm cath placed recently and area around is bruised. She has LT upper outer arm bruise with hematoma. PT is up indep in room to bathroom and has multiple small stools & co profuse gas. Denies acute abd pain. PT with several prolong hospitalizations. She said she was exposed to covid 19 at her [facility] in January & had acute resp failure, recovered then dc home & had acute kidney failure. Says covid test were inconclusive several times no positive test. Prior hx of multiple pneumonias. On room air tolerating diet & activity. Denies nausea. .
[2020-02-29 04:50] LABS: Hematocrit 31.2 % (33.0-51.0); Hemoglobin 9.8 g/dL (11.5-16.0)
[2020-02-29 05:16] LABS: Albumin, Blood 2.4 g/dL (3.4-5.0); Anion Gap 7 mmol/L (6-16); Blood Urea Nitrogen 17 mg/dL (8-24); CO2, Blood 30 mmol/L (21-32); Calcium, Blood 8.1 mg/dL (8.5-10.1); Chloride, Blood 100 mmol/L (98-108); Creatinine, Blood 2.12 mg/dL (0.40-1.00); Glomerular Filtration Rate 24 (60-); Glucose, Blood 79 mg/dL (70-99); Magnesium, Blood 1.6 mg/dL (1.6-2.4); Phosphorus, Blood 3.9 mg/dL (2.5-4.9); Potassium, Blood 3.5 mmol/L (3.5-5.5); Sodium, Blood 137 mmol/L (136-145)
--- NOTE | 2020-02-29 18:03 | NUR ---
SHIFT SUMMARY- PT IS A/O, PLESANT AND COOPERATIVE. SHE WENT FOR A CT WITH CONTRAST THIS MORNING, THEN TO DIALYSIS. SHE WAS THERE FOR SEVERAL HOURS AND TOLERATED WELL. SHE SLEPT FOR A PERIOD OF TIME UPON HER RETURN, PROVIDED WARM BLANKET PT REPORTS SHE IS ALWAYS VERY COLD UPON RETURN. PROGRESSED TO A SOFT DIET.
[2020-03-01 04:47] LABS: Hematocrit 33.3 % (33.0-51.0); Hemoglobin 10.1 g/dL (11.5-16.0)
[2020-03-01 05:11] LABS: Albumin, Blood 2.6 g/dL (3.4-5.0); Anion Gap 4 mmol/L (6-16); Blood Urea Nitrogen 13 mg/dL (8-24); Bun/Creatinine Ratio 6.4 (12.0-20.0); CO2, Blood 32 mmol/L (21-32); Calcium, Blood 7.9 mg/dL (8.5-10.1); Chloride, Blood 103 mmol/L (98-108); Creatinine, Blood 2.03 mg/dL (0.40-1.00); Glomerular Filtration Rate 25 (60-); Glucose, Blood 99 mg/dL (70-99); Magnesium, Blood 1.9 mg/dL (1.6-2.4); Phosphorus, Blood 2.7 mg/dL (2.5-4.9); Potassium, Blood 3.5 mmol/L (3.5-5.5); Sodium, Blood 139 mmol/L (136-145)
--- NOTE | 2020-03-01 06:10 | NUR ---
SHIFT SUMMARY: PATIENT IS A&OX4, NO REPORTS OF PAIN OR NAUSEA. INDEPENDANT IN ROOM WITH A STEADY GAIT OBSERVED. VS ARE STABLE, TOLERATING DIET WELL. CALL HERNANDEZ IS WITHIN REACH.
--- NOTE | 2020-03-01 12:39 | NUR ---
PT DISCHARGED FROM THE UNIT. INSTRUCTIONS REVIEWED. NO NEW MEDICATION. NOTIFIED PT OF DYALISIS ON WEDNESDAY, AND FOLLOW UP APTS WITH PRIMARY AND DR. SINGH. IV REMOVED. PT LEFT VIA WHEEL CHAIR AND WILL BE DRIVEN BY [facility]RI[facility]DS HOME.
== END 2020-03-01 12:35 | disposition home or self-care (01) | DRG 391 ==
LOC: ER 09:32 → MEDS 11:03
PROVIDERS: Internal Medicine Nephrology; Nurse Practitioner Acute Care; Physician Assistant; ADMIT Internal Medicine
DX: R10.11 Right upper quadrant pain (principal); N18.6 End stage renal disease; I12.0 Hypertensive chronic kidney disease with stage 5 chronic kidney disease or end stage renal disease; Z99.2 Dependence on renal dialysis; E87.6 Hypokalemia; D63.1 Anemia in chronic kidney disease; E03.9 Hypothyroidism, unspecified; F31.9 Bipolar disorder, unspecified; D69.6 Thrombocytopenia, unspecified; G25.0 Essential tremor; Z95.0 Presence of cardiac pacemaker; E53.8 Deficiency of other specified B group vitamins; G43.909 Migraine, unspecified, not intractable, without status migrainosus; M81.0 Age-related osteoporosis without current pathological fracture; Z98.84 Bariatric surgery status; E83.39 Other disorders of phosphorus metabolism; Z87.891 Personal history of nicotine dependence; J45.20 Mild intermittent asthma, uncomplicated; E87.70 Fluid overload, unspecified; N28.9 Disorder of kidney and ureter, unspecified
CPT/HCPCS: 36415; 74175; 80053; 80069; 80175; 81001; 83615; 83690; 83735; 84100; 84132; 84478; 85014; 85018; 85025; 87040; 87086; 94760; 96361; 96365; 99284-25; A9270; A9270-GY; J0881; J1644; J3010; J3480; J7030; J7060; J7131; Q9967

== ENCOUNTER → 2020-02-26 | Outpatient (CLI) | payer MEDICARE ==
[~2020-02-26] MED LIST changes: +B-121000 MC3 PO; +CALCIUM 600 +1 EAC4 PO; +LISINOPRIL2.5 MG PO; +Melatonin3 M1 PO; +QUETIAPINE FUM100 MG PO; +VITAMIN B-121000 MCG PO
[2020-02-26 08:14] LABS: Amylase, Blood 208 U/L (25-115)
== END | disposition home or self-care (01) ==
LOC: LAB DAV 07:20
PROVIDERS: Internal Medicine Nephrology
DX: R10.9 Unspecified abdominal pain (principal)
CPT/HCPCS: 82150; 83690

== ENCOUNTER 2020-07-24 02:09 | Emergency (ER) | payer OTHER, MEDICARE ==
[~2020-07-24] VITALS: Ht 142.2 cm; Wt 49.0 kg
[~2020-07-24 02:09] MED LIST changes: +Melatonin3 M1 PO; +VITAMIN B-121000 MCG PO
[2020-07-24] MEDS ORDERED: SEROQUEL100 MG PO (02:32)
[2020-07-24] MEDS ORDERED: TOPIRAMATE TAB 100 (02:32)
[2020-07-24] MEDS ORDERED: LISINOPRIL2.5 MG PO (02:32)
[2020-07-24 02:35] LABS: Source, Urine Clean Catch
[2020-07-24 02:38] LABS: Bilirubin, Urine Neg (Neg); Blood, Urine Neg (Neg); Glucose Qualitative, Urine Neg (Neg); Ketones, Urine Neg (Neg); Leukocyte Esterase, Urine 2+ (Neg); Nitrite, Urine Neg (Neg); Protein, Urine Neg (Neg); Urobilinogen, Urine NORM (Normal)
[2020-07-24 02:40] LABS: Appearance, Urine Clear (Clear); Color, Urine Yellow (P-Yellow)
[2020-07-24 02:44] LABS: Bacteria Few /hpf; Red Blood Cells, Urine Not Seen /hpf (0-2); Squamous Epithelial Cells Rare /hpf (Few); White Blood Cells, Urine 50-100 /hpf (0-5)
[2020-07-24 03:19] LABS: BASOPHILS ABSOLUTE AUTO 0.05 K/mm3 (0.00-0.23); BASOPHILS PERCENT AUTO 1 % (0-2); EOSINOPHILS ABSOLUTE AUTO 0.26 K/mm3 (0.00-0.68); EOSINOPHILS PERCENT AUTO 6 % (0-6); Hematocrit 44.6 % (33.0-51.0); Hemoglobin 13.6 g/dL (11.5-16.0); IMMATURE GRAN ABSOLUTE AUTO 0.01 K/mm3 (0.00-0.10); IMMATURE GRAN PERCENT AUTO 0 % (0-1); LYMPHOCYTES ABSOLUTE AUTO 1.79 K/mm3 (0.84-5.20); LYMPHOCYTES PERCENT AUTO 38 % (21-46); MONOCYTES ABSOLUTE AUTO 0.43 K/mm3 (0.16-1.47); MONOCYTES PERCENT AUTO 9 % (4-13); Mean Corpuscular HGB 28.3 pg (26.0-34.0); Mean Corpuscular HGB Conc 30.5 g/dL (31.5-36.5); Mean Corpuscular Volume 93 fL (80-100); Mean Platelet Volume 11.8 fL (9.1-12.4); NEUTROPHILS ABSOLUTE AUTO 2.19 K/mm3 (1.96-9.15); NEUTROPHILS PERCENT AUTO 46 % (41-73); Platelet Count 148 K/mm3 (150-400); RDW Coefficient Variation 16.8 % (11.7-14.2); Red Blood Cell Count 4.81 M/mm3 (3.80-5.20); White Blood Cell Count 4.73 K/mm3 (4.00-11.30)
[2020-07-24 03:36] LABS: Bun/Creatinine Ratio 12.4 (12.0-20.0); Calcium, Blood 8.7 mg/dL (8.5-10.1); Creatinine, Blood 1.77 mg/dL (0.40-1.00); Potassium, Blood 3.7 mmol/L (3.5-5.5)
[2020-07-24] MEDS ORDERED: CEPH500 PO (04:27)
== END 2020-07-24 05:07 | disposition home or self-care (01) ==
LOC: ER 02:09
PROVIDERS: Student in an Organized Health Care Education/Training Program
DX: S61.211A Laceration without foreign body of left index finger without damage to nail, initial encounter (principal); N39.0 Urinary tract infection, site not specified; S80.811A Abrasion, right lower leg, initial encounter; R07.89 Other chest pain; F31.9 Bipolar disorder, unspecified; J45.909 Unspecified asthma, uncomplicated; Z95.0 Presence of cardiac pacemaker; Z87.891 Personal history of nicotine dependence; X58.XXXA Exposure to other specified factors, initial encounter; Y93.89 Activity, other specified
CPT/HCPCS: 36415; 70450; 71045; 80048; 81001; 82947; 85025; 87077; 87086; 87186; 93005; 93010; 99285-25; A9270-GY

== ENCOUNTER 2021-04-04 13:38 | Emergency (ER) | payer MEDICARE ==
[~2021-04-04] VITALS: Ht 157.5 cm; Wt 56.7 kg
[~2021-04-04 13:38] MED LIST changes: +SEROQUEL100 MG PO; +TOPIRAMATE TAB 100
[2021-04-04 15:32] LABS: BASOPHILS ABSOLUTE AUTO 0.05 K/mm3 (0.00-0.23); BASOPHILS PERCENT AUTO 1 % (0-2); EOSINOPHILS ABSOLUTE AUTO 0.17 K/mm3 (0.00-0.68); EOSINOPHILS PERCENT AUTO 3 % (0-6); Hematocrit 37.1 % (33.0-51.0); Hemoglobin 11.9 g/dL (11.5-16.0); IMMATURE GRAN ABSOLUTE AUTO 0.01 K/mm3 (0.00-0.10); IMMATURE GRAN PERCENT AUTO 0 % (0-1); LYMPHOCYTES ABSOLUTE AUTO 1.53 K/mm3 (0.84-5.20); LYMPHOCYTES PERCENT AUTO 26 % (21-46); MONOCYTES ABSOLUTE AUTO 0.39 K/mm3 (0.16-1.47); MONOCYTES PERCENT AUTO 7 % (4-13); Mean Corpuscular HGB 32.5 pg (26.0-34.0); Mean Corpuscular HGB Conc 32.1 g/dL (31.5-36.5); Mean Corpuscular Volume 101 fL (80-100); Mean Platelet Volume 11.8 fL (9.1-12.4); NEUTROPHILS ABSOLUTE AUTO 3.69 K/mm3 (1.96-9.15); NEUTROPHILS PERCENT AUTO 63 % (41-73); Platelet Count 133 K/mm3 (150-400); RDW Coefficient Variation 14.9 % (11.7-14.2); RDW Standard Deviation 56.1 fL (35.1-46.3); Red Blood Cell Count 3.66 M/mm3 (3.80-5.20); White Blood Cell Count 5.84 K/mm3 (4.00-11.30)
[2021-04-04 15:49] LABS: Albumin, Blood 3.5 g/dL (3.4-5.0); Albumin/Globulin Ratio 0.9 (0.8-1.8); Bilirubin, Total 0.3 mg/dL (0.1-1.0); Bun/Creatinine Ratio 15.6 (12.0-20.0); Calcium, Blood 7.6 mg/dL (8.5-10.1); Creatinine, Blood 1.47 mg/dL (0.40-1.00); Globulin, Blood 3.7 g/dL (2.2-4.0); Potassium, Blood 3.6 mmol/L (3.5-5.5); Total Protein, Blood 7.2 g/dL (6.4-8.2)
[2021-04-04] MEDS ORDERED: Norco 5-325 Ta1 EACH PO (16:39)
== END 2021-04-04 16:49 | disposition home or self-care (01) ==
LOC: ER 13:38
PROVIDERS: Physician Assistant
DX: S06.9X9A Unspecified intracranial injury with loss of consciousness of unspecified duration, initial encounter (principal); S00.12XA Contusion of left eyelid and periocular area, initial encounter; M26.609 Unspecified temporomandibular joint disorder, unspecified side; Z88.2 Allergy status to sulfonamides; Z87.891 Personal history of nicotine dependence; W01.198A Fall on same level from slipping, tripping and stumbling with subsequent striking against other object, initial encounter
CPT/HCPCS: 36415; 70450; 80053; 85025; 99284-25

== ENCOUNTER 2021-04-21 13:57 | Emergency (ER) | payer MEDICARE ==
[~2021-04-21] VITALS: Ht 142.2 cm; Wt 49.9 kg
[2021-04-21] MEDS ORDERED: Norco 5-325 Ta1 EACH PO (16:40)
== END 2021-04-21 16:50 | disposition home or self-care (01) ==
LOC: ER 13:57
DX: S01.112A Laceration without foreign body of left eyelid and periocular area, initial encounter (principal); M54.2 Cervicalgia; Z23 Encounter for immunization; W22.8XXA Striking against or struck by other objects, initial encounter; W01.198A Fall on same level from slipping, tripping and stumbling with subsequent striking against other object, initial encounter
CPT/HCPCS: 12011; 70450; 72125; 90471; 90714; 99284-25; L0160

== ENCOUNTER 2021-05-22 16:37 | Emergency (ER) | payer MEDICARE ==
[~2021-05-22] VITALS: Ht 142.2 cm; Wt 52.2 kg
== END 2021-05-22 23:44 | disposition home or self-care (01) ==
LOC: ER 16:37
DX: S62.318A Displaced fracture of base of other metacarpal bone, initial encounter for closed fracture (principal); S00.11XA Contusion of right eyelid and periocular area, initial encounter; N18.30 Chronic kidney disease, stage 3 unspecified; Z88.2 Allergy status to sulfonamides; Z79.899 Other long term (current) drug therapy; Z86.16 Personal history of COVID-19; Z87.891 Personal history of nicotine dependence; W01.10XA Fall on same level from slipping, tripping and stumbling with subsequent striking against unspecified object, initial encounter; Y93.K1 Activity, walking an animal
CPT/HCPCS: 70450; 70486; 71101; 72125; 73120; 99284-25; A9270